=== PATIENT | male | born 1940 | race Caucasian/White ===

== ENCOUNTER 2017-07-02 07:20 | Day surgery (SDC) | payer MEDICARE, OTHER ==
[~2017-07-02] VITALS: Ht 177.8 cm; Wt 124.3 kg
[~2017-07-02 07:20] MED LIST: CARVEDILOL12.5 MG PO; CEPHALEXIN500 MG PO; DILAUDID4 MG PO; GABAPENTIN400 MG PO; HYDROCHLOROTHIA25 MG PO; LEVOTHYROXINE50 MCG PO; LISINOPRIL-HCT1 EAC2; NAPROXEN500 MG PO; OXYCODONE HCL5 MG PO; OXYCODONE-ACET1 EAC3 PO; PERCOCET 10-321 EACH PO; PHOSPHA 250 NE250 MG PO; RANITIDINE HCL150 MG PO
--- NOTE | 2017-07-02 09:38 | NUR ---
07/02/17 0938 Linda Dudley 0903 PT HAS SWALLOW BREATHING WITH ORAL AIRWAY IN PLACE, CHIN THRUST NEEDED TO MAINTAIN AIRWAY. 0912 O2 SAT DECREASING TO 90%, O2 INCREASED TO 12L. VERBAL STIMULI AND GENTAL TOUCH TO SHOULDER USE TO WAKE PT. 0914 PT REACTIVE AND O2 DECREASED 10L, O2 SAT INCREASED 98%. PT ABLE TO MAINTAIN AIRWAY WITH ORAL AIRWAY IN PLACE. 0918 ORAL AIRWAY REMOVED. 921 O2 DECREASED TO 6L VIA MASK.
--- NOTE | 2017-07-02 10:41 | NUR ---
PT UP TO BR W/RN STANDBY. PT AMBULATES W/HER WALKER TO THE BATHROOM AND REPORTS SUCCESSFUL VOID AND REQ DC HOME. PATIENT UPDATED ON HIS PLAN OF CARE AND HE VERBALIZES UNDERSTANDING OF THAT PLAN.
--- NOTE | 2017-07-02 11:13 | NUR ---
1105 HAS AMB VOIDED QS TAKEN PO WELL. CALLED BUS TO COME GET HIM IS DRESSED AND AMB DOWN HALLWAY. WALKED WITH PT AND BUS OUTSIDE GUN CLUB MANAGER ASSISTING PT.
--- NOTE | 2017-07-02 12:09 | NUR ---
PT LAYING COMFORTABLY IN BED-ALERT AND ORIENTED. SEEMED INFORMED-WAITING FOR I OFFERED TO PRAY FOR PT-HE SAID HE WAS PROTESTANT, BUT IT WOULD BE OK IF I PRAYED. UPON FINISHING-HE SAID THANK YOU, "I FEEL BETTER". WILL CONTINUE TO FOLLOW NEEDED
--- NOTE | 2017-07-05 15:18 | OR ---
[facility] [address] [place], [place] [address] Signed DATE OF OPERATION: 07/02/2017 SURGEON: Aakash Erazo MD PREOPERATIVE DIAGNOSIS: Severe carpal tunnel, left. POSTOPERATIVE DIAGNOSIS: Severe carpal tunnel, left. PROCEDURE: Carpal tunnel release, left. ANESTHESIA: Tolono block. SPECIMENS AND COMPLICATIONS: There were no specimens or complications. TOURNIQUET TIME: About 25 minutes. WHAT WAS DONE: The patient was taken to the operating room, placed on the operating table in a supine position. After anesthesia was induced, the left arm was positioned, prepped and draped in a routine sterile fashion. A volar incision was made beginning at the distal wrist flexion crease, extending distally for about 2 cm. Skin was divided sharply. Subcutaneous tissue was bluntly spread and a small soft retaining retractor was placed. A small Canaan was used to gently clean off the transverse volar carpal ligament, which was then released with the tip of a 15 blade. We then used a Ragnell retractor to lift up the distal flap and used a curved tenotomy scissor to decompress the rest of the median nerve following all the way out into the mid palm. We then reversed direction with the Ragnell lifted up the proximal flap and again used the curved tenotomy scissors to release the distal 3 cm of the antebrachial fascia. At this point, we had a complete decompression of the nerve, which was well visualized and seen to be severely compromised underneath the transverse volar carpal ligament. The wound was gently irrigated, closed in a standard fashion. Sterile dressing applied. The patient was awakened to the recovery room, where he arrived in stable condition. Counts were correct and antibiotic protocols were followed. Electronically Signed By: AAKASH ERAZO MD 07/05/17 1518 PATIENT NAME: ROSENDO LANDAVERDE OPERATIVE REPORT DATE OF : 44 PHYSICIAN: AAKASH ERAZO MD REPORT #: [id number] REPORT IS CONFIDENTIAL AND NOT TO BE RELEASED WITHOUT AUTHORIZATION [address] [place], [place] [address] Signed MD KELVIN Hamilton/JC /[id number] Electronically Signed By: AAKASH ERAZO MD 07/05/17 1518 PATIENT NAME: ROSENDO LANDAVERDE OPERATIVE REPORT DATE OF : 44 PHYSICIAN: AAKASH ERAZO MD REPORT #: [id number] REPORT IS CONFIDENTIAL AND NOT TO BE RELEASED WITHOUT AUTHORIZATION
== END 2017-07-02 11:05 | disposition home or self-care (01) ==
LOC: OPS 07:20 → DS 07:20 → OPS 08:00
PROVIDERS: Orthopaedic Surgery
PROC: 01N50ZZ Release Median Nerve, Open Approach (ICD-10-PCS; principal; 2017-07-02 08:00)
DX: G56.03 Carpal tunnel syndrome, bilateral upper limbs (principal); I10 Essential (primary) hypertension; F32.9 Major depressive disorder, single episode, unspecified; E03.9 Hypothyroidism, unspecified; K21.9 Gastro-esophageal reflux disease without esophagitis; Z79.899 Other long term (current) drug therapy
CPT/HCPCS: 01810; J0690; J1100; J1885; J2405; J2704; J3010; J7120

== ENCOUNTER 2017-11-19 13:33 | Emergency (ER) | payer MEDICARE, OTHER ==
[~2017-11-19] VITALS: Ht 177.8 cm; Wt 124.3 kg
== END 2017-11-19 13:51 | disposition home or self-care (01) ==
LOC: ED 13:33
DX: L08.9 Local infection of the skin and subcutaneous tissue, unspecified (principal)

== ENCOUNTER 2017-12-08 09:39 | Inpatient (IN) | payer MEDICARE, OTHER ==
[~2017-12-08] VITALS: Ht 177.8 cm; Wt 110.7 kg
[2017-12-08] MEDS ORDERED: LISINOPRIL10 MG PO (09:58)
[2017-12-08] MEDS ORDERED: POTASSIUM CHLO10 ME2 PO (09:59)
[2017-12-08] MEDS ORDERED: FUROSEMIDE20 MG PO (09:59)
[2017-12-13] MEDS ORDERED: CEPHALEXIN500 MG PO (13:00)
[2017-12-13] MEDS ORDERED: SULFAMETHOXAZO1 EAC1 PO (13:01)
== END 2017-12-13 14:27 | disposition home or self-care (01) | DRG 872 ==
LOC: ED 09:39 → CCU 15:01 → MS 12-09 11:25
PROVIDERS: ADMIT Internal Medicine
DX: A40.9 Streptococcal sepsis, unspecified (principal); L03.115 Cellulitis of right lower limb; A41.01 Sepsis due to Methicillin susceptible Staphylococcus aureus; I10 Essential (primary) hypertension; K21.9 Gastro-esophageal reflux disease without esophagitis; G62.9 Polyneuropathy, unspecified; M21.371 Foot drop, right foot; M54.5 Low back pain; S74.01XS Injury of sciatic nerve at hip and thigh level, right leg, sequela
CPT/HCPCS: 36415; 36569; 51701; 71045; 80048; 80053; 80202; 81001; 83605; 83735; 83880; 85025; 93971; 94668; 96365; 96366; 96367; 96375; 99285; J0696; J1650; J3370; J7030; J7040; J7050; J7120

== ENCOUNTER 2018-08-11 12:47 | Emergency (ER) | payer MEDICARE, OTHER ==
[~2018-08-11] VITALS: Ht 177.8 cm; Wt 110.7 kg
--- OUTSIDE RECORDS SUMMARY | ~2018-08-11 | XMS | Encounter Summary ---
Demographics + + + | Address | [address] | | | [place] [address] | + + + | Home Phone | | + + + | Preferred Language | Unknown | + + + | Marital Status | | + + + | Taoism Affiliation | Unknown | + + + | Race | Unknown | + + + | Ethnic Group | Unknown | + + + Author + + + | Author | [facility] | | | and [place] | + + + | Organization | [facility] | | | and [place] | + + + | Address | Unknown | + + + | Phone | Unavailable | + + + Support + + +---------+ + | Name | Relationship | Address | Phone | + + +---------+ + | None,To List | ECON | Unknown | | + + +---------+ + Care Team Providers + +------+ + | Care Rn Geriatric Name | Role | Phone | + +------+ + | Serafin Crawford NP | PCP | | + +------+ + Encounter Details +--------+ + + + + | Date | Type | Department | Care Team | Description | +--------+ + + + + | 07/05/ | Documentati | [facility] [place] | Ian Diaz | | | 2019 | on | PHYSIATRY [address] | TMD [address] | | | | | [place], | [address] [place] | | | | | [place] [address] | [address] | | | | | [phone] | | | +--------+ + + + + Social History + + + +--------+ + | Tobacco Use | Types | Packs/Day | Years | Date | | | | | Used | | + + + +--------+ + | Former Smoker | Cigarettes | 2 | 20 | 06/01/1970 - | | | | | | 06/01/1990 | + + + +--------+ + + +---+---+---+ | Smokeless Tobacco: | | | | | Never Used | | | | + +---+---+---+ + + +---------+ + | Alcohol Use | Drinks/We | oz/Week | Comments | | | ek | | | + + +---------+ + | Yes | | | rarely | + + +---------+ + + + + | Sex Assigned at | Date Recorded | | | | + + + | Not on file | | + + + as of this encounter Functional Status + + + + | Functional Status | Response | Date of Assessment | + + + + | Are you deaf or do you have serious | No | 03/26/2018 | | difficulty hearing? | | | + + + + | Are you blind or do you have serious | No | 03/26/2018 | | difficulty seeing, even when wearing | | | | glasses? | | | + + + + | Do you have serious difficulty walking or | No | 03/26/2018 | | climbing stairs? (5 years old or older) | | | + + + + | Do you have difficulty dressing or bathing? | No | 03/26/2018 | | (5 years old or older) | | | + + + + | Because of a physical, mental, or emotional | No | 03/26/2018 | | condition, do you have difficulty doing | | | | errands alone such as visiting a doctor's | | | | office or shopping? [15 years old or | | | | older)] | | | + + + + + + + + | Cognitive Status | Response | Date of Assessment | + + + + | Because of a physical, mental, or emotional | No | 03/26/2018 | | condition, do you have serious difficulty | | | | concentrating, remembering, or making | | | | decisions? (5 years old or older) | | | + + + + as of this encounter Progress Notes Chrissy Segovia - 07/05/2018 1426 PSTPain injection log received, in this encounter Plan of Treatment Not on fileas of this encounter Visit Diagnoses Not on filein this encounter"
--- OUTSIDE RECORDS SUMMARY | ~2018-08-11 | XMS | Encounter Summary ---
Demographics + + + | Address | [address] | | | [place] [address] | + + + | Home Phone | | + + + | Preferred Language | Unknown | + + + | Marital Status | | + + + | Holiness Affiliation | Unknown | + + + | Race | Unknown | + + + | Ethnic Group | Unknown | + + + Author + + + | Author | [facility] | | | and [place] | + + + | Organization | [facility] | | | and [...] Team Providers + +------+ + | Care Chain Forming Machine Operator Name | Role | Phone | + +------+ + | Serafin Crawford NP | PCP | | + +------+ + Reason for Visit Service/Procedure (Routine) +--------+--------+ + + + + | Status | Reason | Specialty | Diagnoses / | Referred By | Referred To | | | | | Procedures | Contact | Contact | +--------+--------+ + + + + | Closed | | Radiology | Diagnoses | | [facility] | | | | | Lumbar | Emily, | [address] | | | | | spondylosis | Ian Boss MD | [place], | | | | | Procedures | [address] | [place] | | | | | [place] | [place] | [address] | | | | | DX/THER AGNT | [place] | Phone: | | | | | [place] | [address] | [phone] | | | | | FACET JOINT, | Phone: | Fax: | | | | | LUMBAR/SAC, | [phone] | [phone] | | | | | 1ST LEVEL | Fax: | | | | | | [place] IN[place] | [phone] | | | | | | DX/THER AGNT | | | | | | | [place] | | | | | | | FACET JOINT, | | | | | | | LUMBAR/SAC, | | | | | | | 2ND LEVEL | | | | | | | Bilateral | | | | | | | L3, L4, MBB, | | | | | | | Bilateral | | | | | | | L5 DR Block | | | | | | | #2 | | | +--------+--------+ + + + + Encounter Details +--------+ + + + + | Date | Type | Department | Care Team | Description | +--------+ + + + + | 03/05/ | Hospital | [facility] | Ian Diaz | Spondylosis without | | 2019 | Encounter | MED CTR XRAY [address] | T, [address] | myelopathy or | | | | [address] [place] | [address] [place], [place] | radiculopathy, | | | | [place] [address] | [address] | lumbar region; | | | | [phone] | | Lumbar spondylosis | | | | | [place] | | +--------+ + + + + [...] + + + as of this encounter Last Filed Vital Signs + +---------+ + | Vital Sign | Reading | Time Taken | + +---------+ + | Blood Pressure | 221/84 | 08/03/2018 1506 PST | + +---------+ + | Pulse | 74 | 08/03/2018 1506 PST | + +---------+ + | Temperature | - | - | + +---------+ + | Respiratory Rate | - | - | + +---------+ + | Oxygen Saturation | - | - | + +---------+ + | Inhaled Oxygen | - | - | | Concentration | | | + +---------+ + | Weight | - | - | + +---------+ + | Height | - | - | + +---------+ + | Body Mass Index | - | - | + +---------+ + in this encounter Functional Status + + + [...] + + + as of this encounter Medications at Time of Discharge + + +--------+---------+ + + | Medication | Sig. | Disp. | Refills | Start | End Date | | | | | | Date | | + + +--------+---------+ + + | FLUAD 0.5 ML | inject 0.5 | | 0 | 02/06/20 | | | vaccine injection | milliliter | | | 18 | | | | intramuscularly | | | | | + + +--------+---------+ + + | furosemide (LASIX) | Take 40 mg by mouth | | | | | | 40 mg tablet | as needed. | | | | | + + +--------+---------+ + + | gabapentin | Take 400 mg by mouth | | | | | | (NEURONTIN) 400 mg | 2 times daily. 800 | | | | | | capsule | mg at Night, 400 mg | | | | | | | in the morning | | | | | + + +--------+---------+ + + | lisinopril | Take 1 tablet by | 30 | 0 | 03/27/20 | | | (PRINIVIL, ZESTRIL) | mouth Daily. | tablet | | 18 | | | 20 mg tablet | | | | | | + + +--------+---------+ + + | naproxen | Take 250 mg by mouth | | | | | | (NAPROSYN) 250 mg | 2 times daily (with | | | | | | tablet | breakfast & | | | | | | | dinner). | | | | | + + +--------+---------+ + + | | Take 1 tablet by | 60 | 0 | 11/16/20 | | | oxyCODONE-acetaminop | mouth every 8 hours | tablet | | 18 | | | hen (PERCOCET) 5-325 | as needed for Pain. | | | | | | mg per tablet | | | | | | + + +--------+---------+ + + | Ranitidine HCl | Take 150 mg by mouth | | | | | | (ZANTAC PO) | 2 times daily. | | | | | + + +--------+---------+ + + as of this encounter Plan of Treatment Not on fileas of this encounter Procedures + +--------+ + + + | Procedure Name | Priori | Date/Time | Associated Diagnosis | Comments | | | ty | | | | + +--------+ + + + | FL FACET INJECTION | Routin | 08/03/2018 | Spondylosis | Results for this | | LUMBAR SACRAL | e | 1446 PST | without myelopathy | procedure are in the | | | | | or radiculopathy, | results section. | | | | | lumbar region | | + +--------+ + + + in this encounter Results FL Facet Injection Lumbar Sacral (08/03/2018 1446) + + -+ | Narrative | Performed At | + + -+ | | [facility] | | 08/03/2018Bilateral Lumbar Medial Branch Block Diagnosis: Lumbar | | | spondylosis ICD-10 M47.817 Britni Hahn presents to the fluoroscopy | | | suite for fluoroscopically-guided bilateral L3, L4 medial branch | | | blocks and bilateral L5 dorsal ramus blocks as part of conservative | | | management for chronic pain with lumbar spondylosis.Based on the | | | patient's history, physical examination and review of the available | | | imaging the patient has been diagnosed with pain coming primarily from | | | the lumbar facet joints. The patient's pain has been moderate to | | | severe, rated as an 8 usually on a 0-10 scale. The pain is | | | impacting activities of daily living including any activities that | | | include prolonged standing, prolonged walking, bending, twisting and | | | if he sits for too long. The patient has been dealing with this | | | pain for more than 3 months and has failed conservative treatment with | | | NSAIDs, PT and a home exercise program therefore diagnostic medial | | | branch blocks were ordered targeting the bilateral L4-L5 and L5-S1 | | | facet joints. After informed consent was obtained, the patient | | | lay in a prone position on the fluoroscopy table. The areas were | | | identified under fluoroscopic guidance. The areas were prepped and | | | draped in a sterile fashion. A 25-gauge 1.5-inch needle was inserted | | | into each region and approximately 2 mL of buffered 1% lidocaine was | | | infused. Then a 22-gauge spinal needle was advanced to the correct | | | position at each site under fluoroscopic guidance. Confirmation into | | | the proper location was obtained with infusion of a small amount of | | | Omnipaque contrast at each site. Then 0.5 mL of 0.5% ropivacaine was | | | infused at each location. Pre- and post-procedure blood pressures were | | | stable. The patient was given verbal as well as written followup | | | instructions. The patient was reexamined after the procedure. He | | | reported good improvement of his symptoms after the procedure. His | | | symptoms were improved even with bending and twisting maneuvers. The | | | patient was instructed to keep a detailed pain diary of the response | | | to treatment and will return the pain diary to our office within the | | | next few days for further evaluation and additional treatment | | | planning. Prior to the start of the procedure, the following were | | | performed and/or verified, including correct patient identity, correct | | | site/side marked and visible, agreement on the procedure to be done, | | | correct patient positioning and an accurate procedure consent form. | | | Any safety precautions based on clinical history and/or medication use | | | have been addressed. I personally performed the procedure above. | | | Estimated blood loss: MinimalComplications: NoneFindings: As | | | expectedAnesthesia: Local 1% Lidocaine | | |visible, agreement on the procedure to be done, correct patient | | |positioning and an accurate procedure consent form. Any safety precautions | | |based on clinical history and/or medication use have been addressed. I | | |personally performed the procedure above. | | | | | |Estimated blood loss: Minimal | | |Complications: None | | |Findings: As expected | | |Anesthesia: Local 1% Lidocaine | | + + -+ + +---------+ + + | Performing | Address | City/State/Zipcode | Phone Number | | Organization | | | | + +---------+ + + | [facility] | | | | + +---------+ + + in this encounter Visit Diagnoses + + | Diagnosis | + + | Spondylosis without myelopathy or radiculopathy, lumbar region | + + | Lumbar spondylosis | + + | Lumbosacral spondylosis without myelopathy | + + Administered Medications + +--------+ +-------+------+------+ | Medication Order | MAR | Action | Dose | Rate | Site | | | Action | Date | | | | + +--------+ +-------+------+------+ | iohexol (OMNIPAQUE 300) 300 | Given | 08/03/2018 | 4 mLs | | | | mg/mL injection 4 mL 4 mL, | | 14:53 | | | | | Other, ONCE, [facility] 08/03/18 at 1500, | | PST | | | | | For 1 dose | | | | | | + +--------+ +-------+------+------+ +---+---+ | | | +---+---+ + +-------+ +--------+---+ + | lidocaine buffered 0.9% | Given | 08/03/2018 | 10 mLs | | Other | | injection 10 mL 10 mL, | | 14:51 | | | (Comment | | Intradermal, ONCE, [facility] 08/03/18 at | | PST | | | ) | | 1500, For 1 dose | | | | | | + +-------+ +--------+---+ + +---+---+ | | | +---+---+ + +-------+ +-------+---+---+ | ropivacaine (NAROPIN) 5 mg/mL | Given | 08/03/2018 | 3 mLs | | | | (0.5%) injection 3 mL 3 mL, | | 14:57 | | | | | PERINEURAL, ONCE, 08/03/18 at | | PST | | | | | 1500, For 1 dose | | | | | | + +-------+ +-------+---+---+ +---+---+ | | | +---+---+ in this encounter"
--- OUTSIDE RECORDS SUMMARY | ~2018-08-11 | XMS | Encounter Summary ---
Demographics + + + | Address | [address] | | | [place] [address] | + + + | Home Phone | | + + + | Preferred Language | Unknown | + + + | Marital Status | | + + + | Adventism Affiliation | Unknown | + + + | Race | Unknown | + + + | Ethnic Group | Unknown | + + + Author + + + | Author | [facility] | | | and [place] | + + + | Organization | [facility] | | | [...] Team Providers + +------+ + | Care [place] Dental Lab Technician Name | Role | Phone | + +------+ + | Serafin Crawford NP | PCP | | + +------+ + Encounter Details +--------+ + + + + | Date | Type | Department | Care Team | Description | +--------+ + + + + | 07/26/ | Orders Only | [facility] [place] | Ian Diaz | Spondylosis without | | 2019 | | PHYSIATRY [address] | [address] | myelopathy or | | | | [employer], | [place], [place] | radiculopathy, | | | | [place] [address] | [address] | lumbar region | | | | [phone] | | (Primary Dx) | +--------+ + + + + Social [...] + + + as of this encounter Plan of Treatment Not on fileas of this encounter Results FL Facet Injection Lumbar [...] Spondylosis without myelopathy or radiculopathy, lumbar region - Primary | + +"
--- OUTSIDE RECORDS SUMMARY | ~2018-08-11 | XMS | Encounter Summary ---
Demographics + + + | Address | [address] | | | [place] [address] | + + + | Home Phone | | + + + | Preferred Language | Unknown | + + + | Marital Status | Single | + + + | Congregation Affiliation | Unknown | + + + | Race | Unknown | + + + | Ethnic Group | Unknown | + + + Author + + + | Author | [facility] | + + + | Organization | [facility] | + + + | Address | Unknown | + + + | Phone | Unavailable | + + + Support + + +---------+ + | Name | Relationship | Address | Phone | + + +---------+ + | Contact,No | ECON | Unknown | | + + +---------+ + Care Team Providers + +------+ + | Care Vision Rehabilitation Therapist Name | Role | Phone | + +------+ + | Nicolas Castañeda MD | PCP | Unavailable | + +------+ + Encounter Details +--------+ + + + + | Date | Type | Department | Care Team | Description | +--------+ + + + + | 06/08/ | Orders Only | [facility] | Bharath Cerda, | Chronic midline low | | 2019 | [facility] | DO [address] | back pain without | | | | [address] | [place] | sciatica; | | | | [place] | [address] | Degeneration of | | | | [address] | | intervertebral disc | | | | [phone] | | of lumbar region | +--------+ + + + + Social History + +-------+ +--------+------+ | Tobacco Use | Types | Packs/Day | Years | Date | | | | | Used | | + +-------+ +--------+------+ | Former Smoker | | | | | + +-------+ +--------+------+ + +---+---+---+ | Smokeless Tobacco: | | | | | Never Used | | | | + +---+---+---+ + + | Comments: quit 1985 | + + + + +---------+ + | Alcohol Use | Drinks/We | oz/Week | Comments | | | ek | | | + + +---------+ + | Yes | | | | + + +---------+ + + + + | Sex Assigned at | Date Recorded | | | | + + + | Not on file | | + + + as of this encounter Plan of Treatment Not on fileas of this encounter Visit Diagnoses + + | Diagnosis | + + | Chronic midline low back pain without sciatica | + + | Degeneration of intervertebral disc of lumbar region | + +"
--- OUTSIDE RECORDS SUMMARY | ~2018-08-11 | XMS | Encounter Summary ---
Demographics + + + | Address | [address] | | | [place] [address] | + + + | Home Phone | | + + + | Preferred Language | Unknown | + + + | Marital Status | | + + + | Jew Affiliation | Unknown | + + + | Race | Unknown | + + + | Ethnic Group | Unknown | + + + Author + + + | Author | [facility] | | | and [place] | + + + | Organization | [facility] | | | [...] Team Providers + +------+ + | Care Ice Cream Maker Name | Role | Phone | + [...] | Lumbar | Emily, | [address] | | | | | spondylosis | Ian Boss MD | [place], | | | | | Procedures | [address] | [place] | | | | | [place] IN[place] | [place] | [address] | | | | | DX/THER AGNT | [place] | Phone: | | | | | [place] | [address] | [phone] | | | | | FACET [place], | Phone: | Fax: | | | | | LUMBAR/SAC, | [phone] | [phone] | | | | | 1ST LEVEL | Fax: | | | | | | [place] IN[place] | [phone] | | | | | | DX/THER [...] + + | 03/05/ | Hospital | [facility] | Ian Diaz | Spondylosis without | | 2019 | Encounter | MED CTR XRAY [address] | T, [address] | myelopathy or | | | | [address] [place] | [place] | radiculopathy, | | | | [place] [address] | [address] | lumbar region; | | | | [phone] | | Lumbar spondylosis | | | | | Research Instrumentation Technician, Ws | | +--------+ + + + [...] | | | | | Other, ONCE, [facility] 08/03/18 at 1500, | | PST | [...] | | (Comment | | Intradermal, ONCE, [facility] 08/03/18 at | | PST | | [...]
--- OUTSIDE RECORDS SUMMARY | ~2018-08-11 | XMS | Clinical Summary ---
Demographics + + + | Address | [address] | | | [place] [address] | + + + | Home Phone | | + + + | Preferred Language | Unknown | + + + | Marital Status | Single | + + + | Denominational Affiliation | Unknown | + + + | Race | Unknown | + + + | Ethnic Group | Unknown | + + + Author + + + | Author | [facility] | + + + | Organization | [facility] | + + + | Address | Unknown | + + + | Phone | Unavailable | + + + Support + + +---------+ + | Name | Relationship | Address | Phone | + + +---------+ + | Contact,No | ECON | Unknown | | + + +---------+ + Care Team Providers + +------+ + | Care Prevocational/Rehabilitation Counselor Name | Role | Phone | + +------+ + | Nicolas Castañeda MD | PP | Unavailable | + +------+ + Allergies No Known Allergies Current Medications + + +---------+---------+------+------+-------+ | Prescription | Sig. | Disp. | Refills | Star | End | Statu | | | | | | t | Date | s | | | | | | Date | | | + + +---------+---------+------+------+-------+ | furosemide (LASIX) | Take 40 mg by mouth. | | | | | Activ | | 40 MG tablet | | | | | | e | + + +---------+---------+------+------+-------+ | naproxen | Take 250 mg by | | | | | Activ | | (NAPROSYN) 250 MG | mouth. | | | | | e | | tablet | | | | | | | + + +---------+---------+------+------+-------+ | ranitidine | Take 150 mg by | | | | | Activ | | (ZANTAC) 150 MG | mouth. | | | | | e | | capsule | | | | | | | + + +---------+---------+------+------+-------+ | gabapentin | Take 1 capsule by | 90 | 3 | 12/1 | | Activ | | (NEURONTIN) 400 MG | mouth 3 (three) | capsule | | 1/20 | | e | | capsuleIndications: | times daily for 30 | | | 18 | | | | Chronic midline low | days. | | | | | | | back pain without | | | | | | | | sciatica, | | | | | | | | Degeneration of | | | | | | | | intervertebral disc | | | | | | | | of lumbar region | | | | | | | + + +---------+---------+------+------+-------+ | | Take 1 tablet by | 60 | 0 | 02/0 | | Activ | | oxyCODONE-acetaminop | mouth every 12 | tablet | | 8/20 | | e | | hen (PERCOCET) 5-325 | (twelve) hours as | | | 19 | | | | MG per | needed for Pain for | | | | | | | tabletIndications: | up to 30 days. | | | | | | | Chronic midline low | | | | | | | | back pain without | | | | | | | | sciatica, | | | | | | | | Degeneration of | | | | | | | | intervertebral disc | | | | | | | | of lumbar region | | | | | | | + + +---------+---------+------+------+-------+ | traMADol (ULTRAM) | Take 1 tablet by | 120 | 3 | 01/0 | | Activ | | 50 MG | mouth every 6 (six) | tablet | | 8/20 | | e | | tabletIndications: | hours as needed for | | | 19 | | | | Chronic midline low | up to 30 days. | | | | | | | back pain without | | | | | | | | sciatica, | | | | | | | | Degeneration of | | | | | | | | intervertebral disc | | | | | | | | of lumbar region | | | | | | | + + +---------+---------+------+------+-------+ Active Problems + + + | Problem | Noted Date | + + + | Chronic midline low back pain without sciatica | 01/11/2018 | + + + | Right leg weakness | 01/11/2018 | + + + | Degeneration of intervertebral disc of lumbar region | 01/11/2018 | + + + Encounters +--------+ + + + + | Date | Type | Specialty | Care Team | Description | +--------+ + + + + | 06/08/ | Orders Only | | Bharath Cerda, | Chronic midline low | | 2019 | | | DO | back pain without | | | | | | sciatica; | | | | | | Degeneration of | | | | | | intervertebral disc | | | | | | of lumbar region | +--------+ + + + + | 05/21/ | Documentati | | Liv Diehl MA | Other (Diagnostics | | 2018 | on Only | | | XR MR) | +--------+ + + + + from Last 3 Months Family History + + +------+ + | Medical History | Relation | Name | Comments | + + +------+ + | Stroke | Father | | | + + +------+ + | Heart attack | Mother | | | + + +------+ + + +------+ + + | Relation | Name | Status | Comments | + +------+ + + | Father | | | | + +------+ + + | Mother | | | | + +------+ + + Social History + +-------+ +--------+------+ [...] on file | | + + + Last Filed Vital Signs + + + + | Vital Sign | Reading | Time Taken | + + + + | Blood Pressure | 150/67 | 05/11/2018 10:13 AM PST | + + + + | Pulse | 78 | 05/11/2018 10:13 AM PST | + + + + | Temperature | - | - | + + + + | Respiratory Rate | 18 | 05/11/2018 10:13 AM PST | + + + + | Oxygen Saturation | 96% | 05/11/2018 10:13 AM PST | + + + + | Inhaled Oxygen | - | - | | Concentration | | | + + + + | Weight | 112.9 kg (249 lb) | 05/11/2018 10:13 AM PST | + + + + | Height | 177.8 cm (5' 10") | 05/11/2018 10:13 AM PST | + + + + | Body Mass Index | 35.73 | 05/11/2018 10:13 AM PST | + + + + Plan of Treatment + + + + + | Health Maintenance | Due Date | Last Done | Comments | + + + + + | Vaccine: | | | | | Dtap/Tdap/Td (1 - | 2 | | | | Tdap) | | | | + + + + + | Colon Cancer | | | | | Screening | 3 | | | | (Colonoscopy) | | | | + + + + + | Vaccine: Zoster (1 | | | | | of 2) | 3 | | | + + + + + | Vaccine: | | | | | Pneumococcal 65+ | 8 | | | | Low/Medium Risk (1 | | | | | of 2 - PCV13) | | | | + + + + + | Vaccine: Influenza | | | | | (#1) | 8 | | | + + + + + Results Not on filefrom Last 3 Months Insurance + +--------+ +------+-------+ + | Payer | Benefi | Subscriber | Type | Phone | Address | | | t Plan | ID | | | | | | / | | | | | | | Group | | | | | + +--------+ +------+-------+ + | MEDICARE | MEDICA | [id number] | | | [address] | | | RE | | | | [place] [address] | | | IP-OP | | | | | + +--------+ +------+-------+ + | MEDICAID | OBED | [id number] | | | [address] | | | N | | | | [place] | | | [place] | | | | [address] | | | [employer] | | | | | + +--------+ +------+-------+ + + +--------+ +--------+ + + | Guarantor Name | Accoun | Relation to | Date | Phone | Billing Address | | | t Type | Patient | of | | | | | | | | | | + +--------+ +--------+ + + | BRITNI HAHN | Person | Self | [birth year] | Home: | [address] | | | al/Fam | | 1941 | [phone] | [address] [place], | | | [place] | | | [phone] | [place] [address] | + +--------+ +--------+ + +
--- OUTSIDE RECORDS SUMMARY | ~2018-08-11 | XMS | Clinical Summary ---
Demographics + + + | Address | [address] | | | [place] [address] | + + + | Home Phone | | + + + | Preferred Language | Unknown | + + + | Marital Status | | + + + | Confucianist Affiliation | Unknown | + + + | Race | Unknown | + + + | Ethnic Group | Unknown | + + + Author + + + | Author | [facility] | | | and [place] | + + + | Organization | [facility] | | | and [...] Team Providers + +------+ + | Care Executive Candidate Developer Name | Role | Phone | + +------+ + | Serafin Crawford DIP TUBE ASSEMBLER MACHINE | PP | | + +------+ + Allergies No Known Allergies Current Medications + + +--------+---------+------+------+-------+ | Prescription | Sig. | Disp. | Refills | Star | End | Statu | | | | | | t | Date | s | | | | | | Date | | | + + +--------+---------+------+------+-------+ | Ranitidine HCl | Take 150 mg by mouth | | | | | Activ | | (ZANTAC PO) | 2 times daily. | | | | | e | + + +--------+---------+------+------+-------+ | naproxen | Take 250 mg by mouth | | | | | Activ | | (NAPROSYN) 250 mg | 2 times daily (with | | | | | e | | tablet | breakfast & | | | | | | | | dinner). | | | | | | + + +--------+---------+------+------+-------+ | gabapentin | Take 400 mg by mouth | | | | | Activ | | (NEURONTIN) 400 mg | 2 times daily. 800 | | | | | e | | capsule | mg at Night, 400 mg | | | | | | | | in the morning | | | | | | + + +--------+---------+------+------+-------+ | furosemide (LASIX) | Take 40 mg by mouth | | | | | Activ | | 40 mg tablet | as needed. | | | | | e | + + +--------+---------+------+------+-------+ | lisinopril | Take 1 tablet by | 30 | 0 | 10/2 | | Activ | | (PRINIVIL, ZESTRIL) | mouth Daily. | tablet | | 7/20 | | e | | 20 mg tablet | | | | 18 | | | + + +--------+---------+------+------+-------+ | FLUAD 0.5 ML | inject 0.5 | | 0 | 09/0 | | Activ | | vaccine injection | milliliter | | | 7/20 | | e | | | intramuscularly | | | 18 | | | + + +--------+---------+------+------+-------+ | | Take 1 tablet by | 60 | 0 | 11/1 | | Activ | | oxyCODONE-acetaminop | mouth every 8 hours | tablet | | 6/20 | | e | | hen (PERCOCET) 5-325 | as needed for Pain. | | | 18 | | | | mg per tablet | | | | | | | + + +--------+---------+------+------+-------+ Active Problems + + + | Problem | Noted Date | + + + | Lumbar spondylosis | 04/16/2018 | + + + | Facet arthritis of lumbar region (HCC) | 04/16/2018 | + + + | Degeneration of intervertebral disc of lumbar region | 01/11/2018 | + + + | HIP PAIN, BILATERAL | | + + + | GERD (gastroesophageal reflux disease) | | + + + | Depression | | + + + | Osteoarthritis | | + + + | HTN (hypertension) | | + + + | Scoliosis | | + + + | Chronic midline low back pain without sciatica | | + + + | Right foot drop | | + + + | Cholecystitis with cholelithiasis | | + + + | Pancreatitis | | + + + Resolved Problems + + + + | Problem | Noted | Resolved | | | Date | Date | + + + + | Chest pain | 03/25/20 | | | | 18 | 8 | + + + + Encounters +--------+ + + + + | Date | Type | Specialty | Care Team | Description | +--------+ + + + + | 08/04/ | Documentati | | Ian Diaz | | | 2019 | on | | T, | | +--------+ + + + + | 08/03/ | Hospital | | Ian Diaz | Spondylosis without | | 2018 | Encounter | | MD Karyn Production Manufacturing Worker, | myelopathy or | | | | | [facility] | radiculopathy, | | | | | | lumbar region; | | | | | | Lumbar spondylosis | +--------+ + + + + | 07/26/ | Orders Only | | Ian Diaz | Spondylosis without | | 2018 | | | MD Karyn | myelopathy or | | | | | | radiculopathy, | | | | | | lumbar region | | | | | | (Primary Dx) | +--------+ + + + + | 07/05/ | Documentati | Ian Edwards | | | 2018 | on | | T, MD | | +--------+ + + + + from Last 3 Months Family History + + +------+ + | Medical History | Relation | Name | Comments | + + +------+ + | Stroke | Father | | | + + +------+ + | Arthritis | Mother | | | + + +------+ + | Cancer | Mother | | | + + +------+ + | Diabetes | Mother | | | + + +------+ + + +------+ + + | Relation | Name | Status | Comments | + +------+ + + | Father | | | | + +------+ + + | Mother | | | | + +------+ + + Social History + + + [...] + + + | Blood Pressure | 221/84 | 08/03/2018 1506 PST | + + + + | Pulse | 74 | 08/03/2018 1506 PST | + + + + | Temperature | 36 C (96.8 F) | 03/26/2018 0800 PDT | + + + + | Respiratory Rate | 18 | 03/26/2018799 PDT | + + + + | Oxygen Saturation | 97% | 03/26/2018799 PDT | + + + + | Inhaled Oxygen | - | - | | Concentration | | | + + + + | Weight | 113.4 kg (250 lb) | 04/16/20181117 PST | + + + + | Height | 177.8 cm (5' 10") | 04/16/20181117 PST | + + + + | Body Mass Index | 35.87 | 04/16/20181117 PST | + + + + Plan of Treatment + + + + + | Health Maintenance | Due Date | Last Done | Comments | + + + + + | Vaccine: | | | | | Dtap/Tdap/Td (1 - | 2 | | | | Tdap) | | | | + + + + + | Colorectal Cancer | | | | | Screening | 3 | | | | (Colonoscopy) | | | | + + + + + | Vaccine: Zoster (1 | | | | | of 2) | 3 | | | + + + + + | AAA Screening | | | | | | 8 | | | + + + + + | Vaccine: | | | | | Pneumococcal 65+ | 8 | | | | Low/Medium Risk (1 | | | | | of 2 - PCV13) | | | | + + + + + | Adult Annual | | | | | Wellness Visit | 5 | | | + + + + + | Vaccine: Influenza | | | | | (#1) | 8 | | | + + + + + Procedures + +--------+ + + + | [...] | | + +--------+ + + + from Last 3 Months Results [place] Facet Injection Lumbar Sacral (08/03/2018 [...] | | | + +---------+ + + from Last 3 Months Insurance + +--------+ +--------+ +---------+ | Payer | Benefi | Subscriber | Type | Phone | Address | | | t Plan | ID | | | | | | / | | | | | | | Group | | | | | + +--------+ +--------+ +---------+ | MEDICARE | MEDICA | [id number] | Medica | +1- | | | | RE | | re | [phone] | | | | PART A | | | | | | | AND B | | | | | + +--------+ +--------+ +---------+ | [employer]AN | MODA | [id number] | Medica | +156- | | | MEDICAID HMO | HEALTH | | id | [id number] | | | | MDCD | | | | | | | [place]MO [place] | | | | | + +--------+ +--------+ +---------+ + +--------+ +--------+ + + | Guarantor Name | Accoun | Relation to | Date | Phone | Billing Address | | | t Type | Patient | of | | | | | | | | | | + +--------+ +--------+ + + | BRITNI HAHN | Person | Self [birth year] | Home: | [address] | | | [place] | | 1941 | [phone] | [address] [place], | | | [place] | | | [address] | [place] [address] | + +--------+ +--------+ + +
--- OUTSIDE RECORDS SUMMARY | ~2018-08-11 | XMS | Clinical Summary ---
Demographics + + + | Address | [address] | | | [place] [address] | + + + | Home Phone | | + + + | Preferred Language | Unknown | + + + | Marital Status | | + + + | Denominational Affiliation [...] Team Providers + +------+ + | Care Surgery Specialist Name | Role | Phone | + +------+ + | Serafin Crawford INTERMEDIATE SCHOOL TEACHER | PP | | + +------+ + [...] 2018 | Encounter | | MD Karyn Steel Melter, | myelopathy or | | | | [...] +--------+ +---------+ | MEDICARE | MEDICA | [id number] | Medica | +1- | | | | RE | | re | [phone] | | | | PART A | | | | | | | AND B | | | | | + +--------+ +--------+ +---------+ | MODA [employer] PLAN | MODA | [id number] | Medica | +118- | | | MEDICAID HMO | HEALTH [...] | | | [place] | | | [phone] | [place] [address] | + +--------+ +--------+ + +
--- OUTSIDE RECORDS SUMMARY | ~2018-08-11 | XMS | Encounter Summary ---
Demographics + + + | Address | [address] | | | [place] [address] | + + + | Home Phone | | + + + | Preferred Language | Unknown | + + + | Marital Status | Single | + + + | Mosque Affiliation | Unknown | + + + | Race | Unknown | + + + | Ethnic Group | Unknown | + + + Author + + + | Author | [facility] | + + + | Organization | [facility] | + + + | Address | Unknown | + + + | Phone | Unavailable | + + + Support + + +---------+ + | Name | Relationship | Address | Phone | + + +---------+ + | Contact,No | ECON | Unknown | | + + +---------+ + Care Team Providers + +------+ + | Care Bone Crusher Name | Role | Phone | + +------+ + | Nicolas Castañeda MD | PCP | Unavailable | + +------+ + Reason for Visit +--------+ + | Reason | Comments | +--------+ + | Other | Diagnostics XR MR | +--------+ + Encounter Details +--------+ + + + + | Date | Type | Department | Care Team | Description | +--------+ + + + + | 05/21/ | Documentati | [facility] | Liv Diehl MA | Other (Diagnostics | | 2018 | on Only | [facility] | | XR MR) | | | | [address] | | | | | | [place] | | | | | | [address] | | | | | | [phone] | | | +--------+ + + + [...]
--- OUTSIDE RECORDS SUMMARY | ~2018-08-11 | XMS | Encounter Summary ---
Demographics + + + | Address | [address] | | | [place] [address] | + + + | Home Phone | | + + + | Preferred Language | Unknown | + + + | Marital Status | | + + + | Congregational Affiliation | Unknown | + + + | Race | Unknown | + + + | Ethnic Group | Unknown | + + + Author + + + | Author | [facility] | | | and [place] | + + + | Organization | [facility] | | | [...] Team Providers + +------+ + | Care Military Pay Technician Name | Role | Phone | [...] | myelopathy or | | | | [place], | [place], [place] | radiculopathy, | | | | [place] [address] | [address] | lumbar region | | | | [phone] | | (Primary Dx) | +--------+ + [...]
--- OUTSIDE RECORDS SUMMARY | ~2018-08-11 | XMS | Encounter Summary ---
Demographics + + + | Address | [address] | | | [place] [address] | + + + | Home Phone | | + + + | Preferred Language | Unknown | + + + | Marital Status | | + + + | Pentecostalism Affiliation | Unknown | + + + | Race | Unknown | + + + | Ethnic Group | Unknown | + + + Author + + + | Author | [facility] | | | and [place] | + + + | Organization | [facility] | | | [...] Team Providers + +------+ + | Care Hand Tile Maker Name | Role | Phone | + +------+ + | Serafin Crawford NP | PCP | | + +------+ + Encounter Details +--------+ + + + + | Date | Type | Department | Care Team | Description | +--------+ + + + + | 08/04/ | Documentati | [facility] | Ian Diaz | | | 2019 | on | PHYSIATRY [address] | TMD [address] | | | | | [place], | [place] | | | | | [place] [address] | [address] | | | | | [phone] | | | +--------+ + + + [...] this encounter Progress Notes Chrissy Segovia - 08/04/2018 1022 PSTPain injection log received in this encounter Plan of Treatment Not on fileas of this encounter Visit Diagnoses Not on filein this encounter"
--- OUTSIDE RECORDS SUMMARY | ~2018-08-11 | XMS | Clinical Summary ---
Demographics + + + | Address | [address] | | | [place] [address] | + + + | Home Phone | | + + + | Preferred Language | Unknown | + + + | Marital Status | Single | + + + | Episcopalian Affiliation | Unknown | + + + | Race | Unknown | + + + | Ethnic Group | Unknown | + + + Author + + + | Author | [facility] | + + + | Organization | [facility] | + + + | Address | Unknown | + + + | Phone | Unavailable | + + + Support + + +---------+ + | Name | Relationship | Address | Phone | + + +---------+ + | Contact,No | ECON | Unknown | | + + +---------+ + Care Team Providers + +------+ + | Care Tire Installer Name | Role | Phone | + [...] +------+-------+ + | MEDICARE | MEDICA | [id number] | | | [address] | | | RE | | | | [place] [address] | | | IP-OP | | | | | + +--------+ +------+-------+ + | MEDICAID | OBED | [id number] | | | [address] | | | N | | | | [place] | | | [place] | | | | [address] | | | ONLINE ADVERTISING MANAGER | | | | | + +--------+ [...] [place] | | | [address] | [place] [address] | + +--------+ +--------+ + +
--- OUTSIDE RECORDS SUMMARY | ~2018-08-11 | XMS | Encounter Summary ---
Demographics + + + | Address | [address] | | | [place] [address] | + + + | Home Phone | | + + + | Preferred Language | Unknown | + + + | Marital Status | Single | + + + | Christianity Affiliation | Unknown | + + + | Race | Unknown | + + + | Ethnic Group | Unknown | + + + Author + + + | Author | [facility] | + + + | Organization | [facility] [facility] | + + + | Address | Unknown | + + + | Phone | Unavailable | + + + Support + + +---------+ + | Name | Relationship | Address | Phone | + + +---------+ + | Contact,No | ECON | Unknown | | + + +---------+ + Care Team Providers + +------+ + | Care Collating Machine Operator Name | Role | Phone [...] | | 2018 | on Only | [facility] | | XR MR) | | | | [address] | | | | | | [place] | | | | | | [address] | | | | | | [phone] | | | +--------+ + + + [...]
--- OUTSIDE RECORDS SUMMARY | ~2018-08-11 | XMS | Encounter Summary ---
Demographics + + + | Address | [address] | | | [place] [address] | + + + | Home Phone | | + + + | Preferred Language | Unknown | + + + | Marital Status | | + + + | Episcopalian Affiliation | Unknown | + + + | Race | Unknown | + + + | Ethnic Group | Unknown | + + + Author + + + | Author | [facility] | | | and [place] | + + + | Organization | [facility] | | [...] Team Providers + +------+ + | Care Fisheries Management Biologist Name | Role | Phone | + [...] [address] | | | | | [place], | [place] | | | | | [place] [address] | [address] | | | | | [phone] | | | +--------+ + + + [...]
--- OUTSIDE RECORDS SUMMARY | ~2018-08-11 | XMS | Encounter Summary ---
Demographics + + + | Address | [address] | | | [place] [address] | + + + | Home Phone | | + + + | Preferred Language | Unknown | + + + | Marital Status | | + + + | Uatsdin Affiliation | Unknown | + + + | Race | Unknown | + + + | Ethnic Group | Unknown | + + + Author + + + | Author | [facility] | | | and [place] | + + + | Organization | [facility] | | | and [...] Team Providers + +------+ + | Care City Sanitarian Name | Role | Phone | + [...] [address] | | | | | [place], | [place] | | | | | [place] [address] | [address] | | | | | [phone] | | | +--------+ + + + [...]
--- OUTSIDE RECORDS SUMMARY | ~2018-08-11 | XMS | Encounter Summary ---
Demographics + + + | Address | [address] | | | [place] [address] | + + + | Home Phone | | + + + | Preferred Language | Unknown | + + + | Marital Status | Single | + + + | Scientology Affiliation | Unknown | + + + | Race | Unknown | + + + | Ethnic Group | Unknown | + + + Author + + + | Author | [facility] | + + + | Organization | [facility] | + + + | Address | Unknown | + + + | Phone | Unavailable | + + + Support + + +---------+ + | Name | Relationship | Address | Phone | + + +---------+ + | Contact,No | ECON | Unknown | | + + +---------+ + Care Team Providers + +------+ + | Care Leather Etcher Name | Role | Phone | + [...] midline low | | 2019 | | [facility] | DO [address] | back pain without | | | | [address] | [place] | sciatica; | | | | [place] | [address] | Degeneration of | | | | [address] | | intervertebral disc | | | | [phone] | | of lumbar region | +--------+ [...]
[~2018-08-11 12:47] MED LIST changes: +FUROSEMIDE20 MG PO; +LISINOPRIL10 MG PO; +POTASSIUM CHLO10 ME2 PO; +SULFAMETHOXAZO1 EAC1 PO
--- OUTSIDE RECORDS SUMMARY | 2018-08-11 12:50 | XMS ---
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 Care History Medical/Surgical 03/26/2018 [facility] - Patient is currently established with [facility]. If patient is seen in the ED during business hours. Please contact CHWs at [facility]. Care Recommendation: This patient has had 5 or more Emergency Department visits in the last 12 months.\T\nbsp; Patient requires education on the scope and purpose of the ED as an acute care provider not a Primary Care Provider and should not be utilized for chronic conditions.\T\nbsp;These are guidelines and the provider should exercise clinical judgment when providing care 12/09/2017 [facility] HX:\T\nbsp; HTN, DM2, NEUROPATHY, DIABETIC RETINOPATHY AND MACULAR EDEMA, CHRONIC STASIS DEMATITIS, DJD, CARPAL TUNNEL SYNDROME BILAT, TINNITUS, LYMPH EDEMA, OBESITY,\T\nbsp; OSTEOARTHRITIS E.D. VISIT COUNT (12 MO.) 4 [facility]. TOTAL 4 NOTE: Visits indicate total known visits. 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 [place] [place] TYPE: Emergency COMPLAINT: - INFECTED R LEG 11/19/2017 13:34 [facility] [address] [place] TYPE: Emergency COMPLAINT: - R LEG SORE DIAGNOSES: - Local infection of the skin and subcutaneous tissue, unspecified INPATIENT VISIT TRACKING (12 MO.) [facility] DIAGNOSES: - chest pain rule out [facility]08[facility]2017 [facility]: Medical [facility] COMPLAINT: - SEPSIS DIAGNOSES: - Cellulitis of right lower limb - Low back pain - Essential (primary) hypertension - Polyneuropathy, unspecified - Gastro-esophageal reflux disease without esophagitis - Streptococcal sepsis, unspecified - Foot drop, right foot - Sepsis, unspecified organism - Sepsis due to Methicillin susceptible Staphylococcus aureus - 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
[2018-08-11] MEDS ORDERED: FUROSEMIDE20 MG PO (13:00)
--- NOTE | 2018-08-11 19:54 | EKG ---
[facility] [address] [facility] [place], [place] [address] Signed Normal sinus rhythm Normal ECG When compared with ECG of 25-MAR-2018 13:04, No significant change was found Confirmed by DANIEL GLORIA MD ([id number]) on 08/11/2018 7:54:28 PM Electronically Signed By: DANIEL GLORIA MD 08/11/181953 PATIENT NAME: ROSENDO LANDAVERDE Electrocardiogram DATE OF : 44 PHYSICIAN: DANIEL GLORIA MD REPORT #: [id number] REPORT IS CONFIDENTIAL AND NOT TO BE RELEASED WITHOUT AUTHORIZATION
== END 2018-08-11 14:19 | disposition home or self-care (01) ==
LOC: ED 12:47
DX: R07.9 Chest pain, unspecified (principal); R06.00 Dyspnea, unspecified; I10 Essential (primary) hypertension; Z79.899 Other long term (current) drug therapy
CPT/HCPCS: 71045; 80053; 84484; 85025; 93005; 93010; 99285-25

== ENCOUNTER → 2021-06-25 | Emergency (ER) | payer MEDICARE, OTHER ==
[~2021-06-25] VITALS: Ht 177.8 cm; Wt 118.4 kg
[~2021-06-25] MED LIST changes: +BUPROPION XL150 MG PO; +CLOPIDOGREL75 MG PO; +FLOMAX0.4 MG PO; +LEVOFLOXACIN750 MG PO; +METFORMIN HCL500 M1 PO; +NITROGLYCERIN0.4 MG SL; +ROSUVASTATIN CAL5 MG PO; +TORSEMIDE20 MG PO
--- OUTSIDE RECORDS SUMMARY | 2021-06-25 14:08 | XMS ---
PreManage Notification: ROSENDO LANDAVERDE Security Legal Clerk Events No recent Security Events currently on file CRITERIA MET - Group Notification CARE PROVIDERS TRENT PEREZ Nurse Practitioner: Family 12/10/2017-Current PHONE: [facility] PHONE: [phone] Sofy has no Care Guidelines for this patient. Care History Medical/Surgical 03/26/2018 [facility] - Patient is currently established with [facility]. If patient is seen in the ED during business hours. Please contact CHWs at [facility]. Care Recommendation: This patient has had 5 or more Emergency Department visits in the last 12 months.\T\nbsp; Patient requires education on the scope and purpose of the ED as an acute care provider not a Primary Care Provider and should not be utilized for chronic conditions.\T\nbsp; These are guidelines and the provider should exercise clinical judgment when providing care 12/09/2017 [facility] HX:\T\nbsp; HTN, DM2, NEUROPATHY, DIABETIC RETINOPATHY AND MACULAR EDEMA, CHRONIC STASIS DEMATITIS, DJD, CARPAL TUNNEL SYNDROME BILAT, TINNITUS, LYMPH EDEMA, OBESITY,\T\nbsp; OSTEOARTHRITIS E.D. VISIT COUNT (12 MO.) 1 [facility] [place] TOTAL 1 NOTE: Visits indicate total known visits. ED/UCC VISIT TRACKING (12 MO.) 06/25/2021 14:06 [facility] [place] TYPE: Emergency COMPLAINT: - LOWER GI BLEEDING INPATIENT VISIT TRACKING (12 MO.) No inpatient visits to display in this time frame [email or web address]
== END ==
LOC: ED 14:05
DX: K56.41 Fecal impaction (principal); I10 Essential (primary) hypertension; Z87.891 Personal history of nicotine dependence; Z79.899 Other long term (current) drug therapy; Z79.84 Long term (current) 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
CPT/HCPCS: 99283

== ENCOUNTER 2021-06-27 08:56 | Emergency (ER) | payer MEDICARE, OTHER ==
[~2021-06-27] VITALS: Ht 177.8 cm; Wt 118.4 kg
[~2021-06-27 08:56] MED LIST changes: -FLOMAX0.4 MG PO; -LEVOFLOXACIN750 MG PO; -NITROGLYCERIN0.4 MG SL
--- OUTSIDE RECORDS SUMMARY | 2021-06-27 08:58 | XMS ---
PreManage Notification: ROSENDO LANDAVERDE Security Control Clerk Auditing Events No recent Security Events currently on file CRITERIA MET - Group Notification - [facility] - 2 Visits in 30 Days CARE PROVIDERS TRENT PEREZ Nurse Practitioner: Family 12/10/2017-Current PHONE: Unknown [facility] Current PHONE: [phone] Sofy has no Care Guidelines for this patient. Care History Medical/Surgical 03/26/2018 [facility] - Patient is currently established with [facility]. If patient is seen in the ED during business hours. Please contact CHWs at [facility]. Care Recommendation: This patient has had 5 or more Emergency Department visits in the last 12 months.\T\nbsp; Patient requires education on the scope and purpose of the ED as an acute care provider not a Primary Care Provider and should not be utilized for chronic conditions.\T\nbsp; These are guidelines and the provider should exercise clinical judgment when providing care 12/09/2017 [facility] HX:\T\nbsp; HTN, DM2, NEUROPATHY, DIABETIC RETINOPATHY AND MACULAR EDEMA, CHRONIC STASIS DEMATITIS, DJD, CARPAL TUNNEL SYNDROME BILAT, TINNITUS, LYMPH EDEMA, OBESITY,\T\nbsp; OSTEOARTHRITIS E.D. VISIT COUNT (12 MO.) 2 [facility] [place] TOTAL 2 NOTE: Visits indicate total known visits. ED/UCC VISIT TRACKING (12 MO.) 06/27/2021 08:56 [facility] [place] TYPE: Emergency COMPLAINT: - ABDOMINAL PAIN 06/25/2021 14:06 [facility] [place] TYPE: Emergency COMPLAINT: - LOWER GI BLEEDING INPATIENT VISIT TRACKING (12 MO.) No inpatient visits to display in this time frame [id number]
[2021-06-27] MEDS ORDERED: LEVOFLOXACIN750 MG PO (11:18)
[2021-06-27] MEDS ORDERED: FLOMAX0.4 MG PO (11:18)
[2021-06-27] MEDS ORDERED: NITROGLYCERIN0.4 MG SL (11:24)
--- NOTE | 2021-06-28 13:31 | EKG ---
[facility] [address] [facility] [address] [facility] [place] [address] Signed Atrial fibrillation Abnormal ECG When compared with ECG of 22-DEC-2018 09:47, Atrial fibrillation has replaced Sinus rhythm Inverted T waves have replaced nonspecific T wave abnormality in Inferior leads Confirmed by WESLEY EDDY DO ([id number]) on 06/28/2021 1:31:12 PM Electronically Signed By: WESLEY EDDY DO 06/28/21 1331 PATIENT NAME: AKHILROSENDO JUN Electrocardiogram DATE OF : 44 PHYSICIAN: WESLEY EDDY DO REPORT #: [id number] REPORT IS CONFIDENTIAL AND NOT TO BE RELEASED WITHOUT AUTHORIZATION
== END 2021-06-27 13:00 | disposition home or self-care (01) ==
LOC: ED 08:56
DX: N41.9 Inflammatory disease of prostate, unspecified (principal); R33.9 Retention of urine, unspecified; M19.90 Unspecified osteoarthritis, unspecified site; I10 Essential (primary) hypertension; Z87.891 Personal history of nicotine dependence; Z79.84 Long term (current) 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; Z79.899 Other long term (current) drug therapy
CPT/HCPCS: 51702; 51798; 74177; 80048; 81001; 83690; 84484; 85025; 93005; 93010; 99284-25; J1170; J1956; J7040; Q9967

== ENCOUNTER 2021-07-05 13:35 | Emergency (ER) | payer MEDICARE, OTHER ==
[~2021-07-05] VITALS: Ht 177.8 cm; Wt 113.4 kg
[~2021-07-05 13:35] MED LIST changes: +FLOMAX0.4 MG PO; +LEVOFLOXACIN750 MG PO; +NITROGLYCERIN0.4 MG SL
--- OUTSIDE RECORDS SUMMARY | 2021-07-05 13:38 | XMS ---
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 Current PHONE: [phone] Sofy has no Care Guidelines for this patient. Care History Medical/Surgical 03/26/2018 [facility] - Patient is currently established with [facility]. If patient is seen in the ED during business hours. Please contact CHWs at [facility]. Care Recommendation: This patient has had 5 or more Emergency Department visits in the last 12 months.\T\nbsp; Patient requires education on the scope and purpose of the ED as an acute care provider not a Primary Care Provider and should not be utilized for chronic conditions.\T\nbsp; These are guidelines and the provider should exercise clinical judgment when providing care 12/09/2017 [facility] HX:\T\nbsp; HTN, DM2, NEUROPATHY, DIABETIC RETINOPATHY AND MACULAR EDEMA, CHRONIC STASIS DEMATITIS, DJD, CARPAL TUNNEL SYNDROME BILAT, TINNITUS, LYMPH EDEMA, OBESITY,\T\nbsp; OSTEOARTHRITIS E.D. VISIT COUNT (12 MO.) 3 [place] [place] TOTAL 3 NOTE: Visits indicate total known visits. ED/UCC VISIT TRACKING (12 MO.) 07/05/2021 13:35 [facility] [place] TYPE: Emergency COMPLAINT: - CHEST PAIN 06/27/2021 08:56 [facility] [place] TYPE: Emergency COMPLAINT: - ABDOMINAL PAIN DIAGNOSES: - Inflammatory disease of prostate, unspecified - Essential (primary) hypertension - Personal history of nicotine dependence - Other retention of urine - Unspecified osteoarthritis, unspecified site - Lower abdominal pain, unspecified - care home (current) 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 - Other intermediate (current) drug therapy - Benign prostatic hyperplasia with lower urinary tract symptoms - Retention of urine, unspecified 06/25/2021 14:06 [facility] [place] TYPE: Emergency COMPLAINT: - LOWER GI BLEEDING DIAGNOSES: - Fecal impaction - Personal history of nicotine dependence - Hemorrhage of anus and rectum - Essential (primary) hypertension - Other intermediate (current) drug therapy - 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
[2021-07-05] MEDS ORDERED: ISOSORBIDE DINI10 MG PO (19:03)
--- NOTE | 2021-07-07 17:50 | EKG ---
[facility] [address] [facility] [place], [place] [address] Signed Atrial fibrillation Abnormal ECG When compared with ECG of 27-JUN-2021 09:02, No significant change was found Confirmed by JING ORDOÑEZ MD ([id number]) on 07/07/2021 5:50:29 PM Electronically Signed By: JING ORDOÑEZ MD 07/07/21 1750 PATIENT NAME: ROSENDO ALNDAVERDE JUN Electrocardiogram DATE OF : 44 PHYSICIAN: JING ORDOÑEZ MD REPORT #: [id number] REPORT IS CONFIDENTIAL AND NOT TO BE RELEASED WITHOUT AUTHORIZATION
== END 2021-07-05 19:40 | disposition home or self-care (01) ==
LOC: ED 13:35
DX: I25.118 Atherosclerotic heart disease of native coronary artery with other forms of angina pectoris (principal); I10 Essential (primary) hypertension; M19.90 Unspecified osteoarthritis, unspecified site; Z87.891 Personal history of nicotine dependence; Z79.899 Other long term (current) drug therapy; Z79.84 Long term (current) 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
CPT/HCPCS: 36415; 80048; 84484; 85025; 93005; 93010; 99285-25

== ENCOUNTER 2021-07-27 12:35 | Emergency (ER) | payer MEDICARE, OTHER ==
[~2021-07-27] VITALS: Ht 177.8 cm; Wt 113.4 kg
[~2021-07-27 12:35] MED LIST changes: +ISOSORBIDE DINI10 MG PO
--- OUTSIDE RECORDS SUMMARY | 2021-07-27 12:36 | XMS ---
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 Care History Medical/Surgical 12/09/2017 [facility] HX:\T\nbsp; HTN, DM2, NEUROPATHY, DIABETIC RETINOPATHY AND MACULAR EDEMA, CHRONIC STASIS DEMATITIS, DJD, CARPAL TUNNEL SYNDROME BILAT, TINNITUS, LYMPH EDEMA, OBESITY,\T\nbsp; OSTEOARTHRITIS E.D. VISIT COUNT (12 MO.) [address] [facility] TOTAL 4 NOTE: Visits indicate total known visits. ED/UCC VISIT TRACKING (12 MO.) 07/27/2021 12:35 [facility] [place] TYPE: Emergency COMPLAINT: - CHEST PAIN 07/05/2021 13:35 [facility] [place] TYPE: Emergency COMPLAINT: - CHEST PAIN DIAGNOSES: - Atherosclerotic heart disease of [place] coronary artery with other forms of angina pectoris - Other usp (current) drug therapy - Essential (primary) hypertension - Chest pain, unspecified - Unspecified osteoarthritis, unspecified site - senior living (current) 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 - Personal history of nicotine dependence 06/27/2021 08:56 [facility] [place] TYPE: Emergency COMPLAINT: - ABDOMINAL PAIN DIAGNOSES: - Inflammatory disease of prostate, unspecified - Essential (primary) hypertension - Personal history of nicotine dependence - Other retention of urine - Unspecified osteoarthritis, unspecified site - Lower abdominal pain, unspecified - 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 - Other 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 (current) drug therapy - Benign prostatic hyperplasia with lower urinary tract symptoms - Retention of urine, unspecified 06/25/2021 14:06 [facility] [place] TYPE: Emergency COMPLAINT: - LOWER GI BLEEDING DIAGNOSES: - Fecal impaction - Personal history of nicotine dependence - Hemorrhage of anus and rectum - Essential (primary) hypertension - Other usp (current) drug therapy - senior living (current) 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 INPATIENT VISIT TRACKING (12 MO.) No inpatient visits to display in this time frame [id number]
--- NOTE | 2021-07-27 17:43 | EKG ---
[facility] [address] [facility] [place], [place] [address] Signed Atrial fibrillation Abnormal ECG When compared with ECG of 05-JUL-2021 13:37, T wave inversion no longer evident in Inferior leads Confirmed by WESLEY EDDY DO ([id number]) on 07/27/2021 5:42:49 PM Electronically Signed By: WESLEY EDDY DO 07/27/21 1743 PATIENT NAME: ROSENDO LANDAVERDE Electrocardiogram DATE OF : 44 PHYSICIAN: WESLEY EDDY DO REPORT #: [id number] REPORT IS CONFIDENTIAL AND NOT TO BE RELEASED WITHOUT AUTHORIZATION
== END 2021-07-27 16:21 | disposition home or self-care (01) ==
LOC: ED 12:35
DX: R07.9 Chest pain, unspecified (principal); M19.90 Unspecified osteoarthritis, unspecified site; I10 Essential (primary) hypertension; Z87.891 Personal history of nicotine dependence; Z79.899 Other long term (current) drug therapy; Z79.84 Long term (current) 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
CPT/HCPCS: 36415; 80048; 84484; 85025; 93005; 93010; 99285-25

== ENCOUNTER 2021-08-18 18:36 | Emergency (ER) | payer MEDICARE, OTHER ==
[~2021-08-18] VITALS: Ht 177.8 cm; Wt 113.4 kg
--- OUTSIDE RECORDS SUMMARY | 2021-08-18 18:38 | XMS ---
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 Care History Medical/Surgical 12/09/2017 [facility] HX:\T\nbsp; HTN, DM2, NEUROPATHY, DIABETIC RETINOPATHY AND MACULAR EDEMA, CHRONIC STASIS DEMATITIS, DJD, CARPAL TUNNEL SYNDROME BILAT, TINNITUS, LYMPH EDEMA, OBESITY,\T\nbsp; OSTEOARTHRITIS E.D. VISIT COUNT (12 MO.) [address] [facility] TOTAL 5 NOTE: Visits indicate total known visits. 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) drug therapy - Essential (primary) hypertension 07/05/2021 13:35 [facility] [place] TYPE: Emergency COMPLAINT: - CHEST PAIN DIAGNOSES: - Atherosclerotic heart disease of [place] coronary artery with other forms of angina pectoris - Other intermediate school teacher (current) drug therapy - Essential (primary) hypertension - Chest pain, unspecified - Unspecified osteoarthritis, unspecified site - residential (current) 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 - Personal history of nicotine dependence 06/27/2021 08:56 [facility] [place] TYPE: Emergency COMPLAINT: - ABDOMINAL PAIN DIAGNOSES: - Inflammatory disease of prostate, unspecified - Essential (primary) hypertension - Personal history of nicotine dependence - Other retention of urine - Unspecified osteoarthritis, unspecified site - Lower abdominal pain, unspecified - 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 - Other senior care (current) drug therapy - Benign prostatic hyperplasia with lower urinary tract symptoms - Retention of urine, unspecified 06/25/2021 14:06 [facility] [place] TYPE: Emergency COMPLAINT: - LOWER GI BLEEDING DIAGNOSES: - Fecal impaction - Personal history of nicotine dependence - Hemorrhage of anus and rectum - Essential (primary) hypertension - Other senior care (current) drug therapy - 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
[2021-08-18] MEDS ORDERED: PANTOPRAZOLE SO40 MG PO (18:51)
[2021-08-18] MEDS ORDERED: MACROBID 100 M100 MG PO (22:33)
--- NOTE | 2021-08-18 23:56 | EKG ---
[facility] [address] [facility] [place] [address] Signed Atrial fibrillation with rapid ventricular response Abnormal ECG When compared with ECG of 27-JUL-2021 12:36, Vent. rate has increased BY 42 BPM Nonspecific T wave abnormality now evident in Inferior leads Confirmed by JING ORDOÑEZ MD ([id number]) on 08/18/2021 11:55:52 PM Electronically Signed By: JING ORDOÑEZ MD 08/18/21 2356 PATIENT NAME: ROSENDO LANDAVERDE Electrocardiogram DATE OF : 44 PHYSICIAN: JING ORDOÑEZ MD REPORT #: [id number] REPORT IS CONFIDENTIAL AND NOT TO BE RELEASED WITHOUT AUTHORIZATION
== END 2021-08-18 23:02 | disposition home or self-care (01) ==
LOC: ED 18:36
DX: N39.0 Urinary tract infection, site not specified (principal); M19.90 Unspecified osteoarthritis, unspecified site; I10 Essential (primary) hypertension; I48.91 Unspecified atrial fibrillation; Z87.891 Personal history of nicotine dependence; Z79.899 Other long term (current) drug therapy; Z79.84 Long term (current) 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
CPT/HCPCS: 36415; 51702; 74177; 80048; 81001; 85025; 93005; 93010; 99284-25; Q9967

== ENCOUNTER 2021-09-15 10:12 | Inpatient (IN) | payer MEDICARE, OTHER ==
[~2021-09-15] VITALS: Ht 177.8 cm; Wt 115.8 kg
[~2021-09-15 10:12] MED LIST changes: +MACROBID 100 M100 MG PO; +PANTOPRAZOLE SO40 MG PO
--- OUTSIDE RECORDS SUMMARY | 2021-09-15 10:14 | XMS ---
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 Care History Medical/Surgical 12/09/[address] [facility] HX:\T\nbsp; HTN, DM2, NEUROPATHY, DIABETIC RETINOPATHY AND MACULAR EDEMA, CHRONIC STASIS DEMATITIS, DJD, CARPAL TUNNEL SYNDROME BILAT, TINNITUS, LYMPH EDEMA, OBESITY,\T\nbsp; OSTEOARTHRITIS E.D. VISIT COUNT (12 MO.) [address] [facility] TOTAL 6 NOTE: Visits indicate total known visits. ED/UCC VISIT TRACKING (12 MO.) 09/15/2021 10:12 [facility] [place] TYPE: Emergency COMPLAINT: - SHOB 08/18/2021 18:36 [facility] [place] TYPE: Emergency COMPLAINT: - FLANK PAIN DIAGNOSES: - Other usp (current) drug therapy - Unspecified abdominal pain - Essential (primary) hypertension - assisted (current) 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 - Unspecified osteoarthritis, unspecified site - Unspecified atrial fibrillation - Personal history of nicotine dependence - Urinary tract infection, site not specified 07/27/2021 12:35 [facility] [place] TYPE: Emergency COMPLAINT: - CHEST PAIN DIAGNOSES: - Chest pain, unspecified - Unspecified osteoarthritis, unspecified site - Personal history of nicotine dependence - 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 - Other long term care administrator (current) drug therapy - Essential (primary) hypertension 07/05/2021 13:35 [facility] [place] TYPE: Emergency COMPLAINT: - CHEST PAIN DIAGNOSES: - Atherosclerotic heart disease of [place] coronary artery with other forms of angina pectoris - Other usp (current) drug therapy - Essential (primary) hypertension - Chest pain, unspecified - Unspecified osteoarthritis, unspecified site - assisted (current) 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 - Personal history of nicotine dependence 06/27/2021 08:56 [facility] [place] TYPE: Emergency COMPLAINT: - ABDOMINAL PAIN DIAGNOSES: - Inflammatory disease of prostate, unspecified - Essential (primary) hypertension - Personal history of nicotine dependence - Other retention of urine - Unspecified osteoarthritis, unspecified site - Lower abdominal pain, unspecified - 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 - Other long term care administrator (current) drug therapy - Benign prostatic hyperplasia with lower urinary tract symptoms - Retention of urine, unspecified 06/25/2021 14:06 [facility] [place] TYPE: Emergency COMPLAINT: - LOWER GI BLEEDING DIAGNOSES: - Fecal impaction - Personal history of nicotine dependence - Hemorrhage of anus and rectum - Essential (primary) hypertension - Other long term care administrator (current) drug therapy - 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
[2021-09-15] MEDS ORDERED: ISOSORBIDE DINI20 MG PO (13:42)
[2021-09-15] MEDS ORDERED: NEURONTIN400 MG PO (14:11)
[2021-09-15] MEDS ORDERED: FLOMAX0.4 MG PO (14:13)
[2021-09-15] MEDS ORDERED: BASAGLAR K100 UNIT/1 SUB-Q (14:14)
[2021-09-15] MEDS ORDERED: METOPROLOL SUCC50 MG PO (14:15)
--- NOTE | 2021-09-15 18:43 | EKG ---
[facility] [address] [place] [address] Signed Atrial fibrillation Abnormal ECG When compared with ECG of 18-AUG-2021 18:47, Vent. rate has decreased BY 45 BPM Confirmed by DANIEL GLORIA MD ([id number]) on 09/15/2021 6:43:43 PM Electronically Signed By: DANIEL GLORIA MD 09/15/211842 PATIENT NAME: ROSENDO LANDAVERDE JUN Electrocardiogram DATE OF : 44 PHYSICIAN: DANIEL GLORIA MD REPORT #: [id number] REPORT IS CONFIDENTIAL AND NOT TO BE RELEASED WITHOUT AUTHORIZATION
== END 2021-09-17 14:40 | disposition home or self-care (01) | DRG 291 ==
LOC: ED 10:12 → MS 13:09
PROVIDERS: ADMIT Internal Medicine; ATTEND Internal Medicine
DX: I11.0 Hypertensive heart disease with heart failure (principal); I50.21 Acute systolic (congestive) heart failure; I48.20 Chronic atrial fibrillation, unspecified; Z20.822 Contact with and (suspected) exposure to COVID-19; E11.42 Type 2 diabetes mellitus with diabetic polyneuropathy; I27.20 Pulmonary hypertension, unspecified; Z87.891 Personal history of nicotine dependence; M19.90 Unspecified osteoarthritis, unspecified site; Z96.641 Presence of right artificial hip joint; Z96.611 Presence of right artificial shoulder joint; Z89.022 Acquired absence of left finger(s); Z79.899 Other long term (current) drug therapy; Z79.02 Long term (current) use of antithrombotics/antiplatelets; Z79.84 Long term (current) 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
CPT/HCPCS: 36415; 71045; 80048; 80053; 83735; 83880; 85025; 93005; 93010; 93306; 94760; 97110; 97162; 99285-25; A9270; C9803; J1650; J1815; J1940; U0003

== ENCOUNTER 2022-03-27 09:18 | Emergency (ER) | payer MEDICARE, OTHER ==
[~2022-03-27] VITALS: Ht 177.8 cm; Wt 115.7 kg
[~2022-03-27 09:18] MED LIST changes: +BASAGLAR K100 UNIT/1 SUB-Q; +ISOSORBIDE DINI20 MG PO; +METOPROLOL SUCC50 MG PO; +NEURONTIN400 MG PO
--- OUTSIDE RECORDS SUMMARY | 2022-03-27 09:22 | XMS ---
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 Care History Medical/Surgical 12/09/2017 [facility] HX:\T\nbsp; HTN, DM2, NEUROPATHY, DIABETIC RETINOPATHY AND MACULAR EDEMA, CHRONIC STASIS DEMATITIS, DJD, CARPAL TUNNEL SYNDROME BILAT, TINNITUS, LYMPH EDEMA, OBESITY,\T\nbsp; OSTEOARTHRITIS E.D. VISIT COUNT (12 MO.) [facility] TOTAL 8 NOTE: Visits indicate total known visits. ED/UCC VISIT TRACKING (12 MO.) 03/27/2022 09:[address] [facility] [address] Jin[facility]ie RODRIGUEZ TYPE: Emergency COMPLAINT: - SOB [facility] DIAGNOSES: - Chest Pressure - Disorder of kidney and ureter, unspecified - Type 2 diabetes mellitus with hyperosmolarity without nonketotic hyperglycemic-hyperosmolar coma ([facility]) - Unstable angina - Unspecified atrial fibrillation - Hyperkalemia 09/15/2021 10:12 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) drug therapy - Personal history of nicotine dependence - Unspecified osteoarthritis, unspecified site - Essential (primary) hypertension - Atherosclerotic heart disease of [place] coronary artery with other forms of angina pectoris - 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 (current) 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 06/27/2021 08:56 [facility] [place] TYPE: Emergency COMPLAINT: - ABDOMINAL PAIN DIAGNOSES: - Other retention of urine - Essential (primary) hypertension - Benign prostatic hyperplasia with lower urinary tract symptoms - 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 (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) 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 - Unspecified osteoarthritis, unspecified site - Personal history of nicotine dependence - Retention of urine, unspecified - Inflammatory disease of prostate, unspecified - Other residential (current) drug therapy - Lower abdominal pain, unspecified 06/25/2021 14:06 [facility] [place] TYPE: Emergency COMPLAINT: - LOWER GI BLEEDING DIAGNOSES: - Essential (primary) hypertension - Personal history of nicotine dependence - Other residential (current) drug therapy - Hemorrhage of anus and rectum - Fecal impaction - 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 (current) 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 INPATIENT VISIT TRACKING (12 MO.) 12/21/2021 21:32 [facility] Lexa IVAN TYPE: Intensive Care DIAGNOSES: - Unstable angina - Unspecified atrial fibrillation - Hyperglycemia, unspecified - Type 2 diabetes mellitus with hyperosmolarity without nonketotic hyperglycemic-hyperosmolar coma ([facility]) - Disorder of kidney and ureter, unspecified - Hyperkalemia - Cystitis, unspecified without hematuria 09/15/2021 13:09 [facility] [place] TYPE: Medical Surgical COMPLAINT: - ACUTE SYSTOLIC CONGESTIVE HEART FAILURE DIAGNOSES: - 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 (current) use of antithrombotics/antiplatelets - Other computer terminal operator (current) drug therapy - Type 2 diabetes mellitus with diabetic polyneuropathy - Hypertensive heart disease with heart failure - Presence of right artificial hip joint - Pulmonary hypertension, unspecified - Acquired absence of left finger(s) - Chronic atrial fibrillation, unspecified - Presence of right artificial shoulder joint - Acute systolic (congestive) heart failure - Contact with and (suspected) exposure to COVID-19 - Unspecified osteoarthritis, unspecified site - Personal history of nicotine dependence - 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 (current) 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 [id number]
--- NOTE | 2022-03-27 13:35 | NUR ---
1335-DRESSING CHANGE IN ER ROOM 6. SEE DAY SURGERY WOUND ASSESSMENT AND NOTE FOR DRESSING CHANGE DETAILS.
[2022-03-27] MEDS ORDERED: PANTOPRAZOLE SO40 MG PO (15:35)
--- NOTE | 2022-03-28 03:33 | EKG ---
[facility] [address] [facility] [place], [place] [address] Signed Atrial fibrillation Low voltage QRS Abnormal ECG When compared with ECG of 15-SEP-2021 10:40, No significant change was found Confirmed by DANIEL GLORIA MD ([id number]) on 03/28/2022 3:33:07 AM Electronically Signed By: DANIEL GLORIA MD 03/28/22 0333 PATIENT NAME: ROSENDO LANDAVERDE JUN Electrocardiogram DATE OF : 44 PHYSICIAN: DANIEL GLORIA MD REPORT #: [id number] REPORT IS CONFIDENTIAL AND NOT TO BE RELEASED WITHOUT AUTHORIZATION
== END 2022-03-27 18:22 | disposition home or self-care (01) ==
LOC: ED 09:18
DX: I11.0 Hypertensive heart disease with heart failure (principal); I50.9 Heart failure, unspecified; D64.9 Anemia, unspecified; I48.91 Unspecified atrial fibrillation; E11.9 Type 2 diabetes mellitus without complications; Z87.891 Personal history of nicotine dependence; Z79.4 Long term (current) use of insulin; Z79.84 Long term (current) 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; Z79.899 Other long term (current) drug therapy
CPT/HCPCS: 36415; 71045; 80053; 81001; 83735; 83880; 84484; 85025; 85060; 86850; 86900; 86901; 86922; 93005; 93010; 96374; 99285-25; J1940; P9016

== ENCOUNTER 2022-05-21 11:30 | Observation (INO) | payer MEDICARE, OTHER ==
[~2022-05-21] VITALS: Ht 177.8 cm; Wt 115.4 kg
--- OUTSIDE RECORDS SUMMARY | 2022-05-21 11:34 | XMS ---
PreManage Notification: ROSENDO LANDAVERDE Security Visual Educator Events No recent Security Events currently on file CRITERIA MET - [facility] TRENT PEREZ Nurse Practitioner: Family 12/10/2017-Current PHONE: Unknown [facility] PHONE: Unknown Sofy has no Care Guidelines for this patient. Care History Medical/Surgical 12/09/2017 [facility] HX:\T\nbsp; HTN, DM2, NEUROPATHY, DIABETIC RETINOPATHY AND MACULAR EDEMA, CHRONIC STASIS DEMATITIS, DJD, CARPAL TUNNEL SYNDROME BILAT, TINNITUS, LYMPH EDEMA, OBESITY,\T\nbsp; OSTEOARTHRITIS E.D. VISIT COUNT (12 MO.) 1 [facility] 8 MAXIMILIANO Salas AnnabelJackie TOTAL 9 NOTE: Visits indicate total known visits. ED/UCC VISIT TRACKING (12 MO.) 05/21/2022 11:31 [place] TYPE: Emergency COMPLAINT: - FALL 03/27/2022 09:18 [place] TYPE: Emergency COMPLAINT: - SOB DIAGNOSES: - Heart failure, unspecified - snf (current) 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 - Unspecified atrial fibrillation - Anemia, unspecified - Hypertensive heart disease with heart failure - Type 2 diabetes mellitus without complications - Shortness of breath - Other computer terminal operator (current) drug therapy - snf (current) use of insulin - Personal history of nicotine dependence [facility]21 [facility] DIAGNOSES: - Hyperkalemia - Chest Pressure - Disorder of kidney and ureter, unspecified - Type 2 diabetes mellitus with hyperosmolarity without nonketotic hyperglycemic-hyperosmolar coma ([facility]) - Unstable angina - Unspecified atrial fibrillation 09/15/2021 10:12 MAXIMILIANO [place] TYPE: Emergency COMPLAINT: - SHOB 08/18/2021 18:36 MAXIMILIANO [place] TYPE: Emergency COMPLAINT: - FLANK PAIN DIAGNOSES: - Unspecified atrial fibrillation - 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 - Unspecified abdominal pain - Personal history of nicotine dependence - Unspecified osteoarthritis, unspecified site - Essential (primary) hypertension - Other computer terminal operator (current) drug therapy - Urinary tract infection, site not specified 07/27/2021 12:35 MAXIMILIANO Friendmalachi JinJackie [place] TYPE: Emergency COMPLAINT: - CHEST PAIN DIAGNOSES: - Essential (primary) hypertension - snf (current) 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 - Unspecified osteoarthritis, unspecified site - Other computer terminal operator (current) drug therapy - Personal history of nicotine dependence - Chest pain, unspecified 07/05/2021 13:35 MAX[place] TYPE: Emergency COMPLAINT: - CHEST PAIN DIAGNOSES: - 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 - Chest pain, unspecified - Other computer terminal operator (current) drug therapy - Personal history of nicotine dependence - Unspecified osteoarthritis, unspecified site - Essential (primary) hypertension - Atherosclerotic heart disease of [place] coronary artery with other forms of angina pectoris 06/27/2021 08:56 MAXIMILIANO [place] TYPE: Emergency COMPLAINT: - ABDOMINAL PAIN DIAGNOSES: - Lower abdominal pain, unspecified - Other retention of urine - Essential (primary) hypertension - Benign prostatic hyperplasia with lower urinary tract symptoms - 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 - Unspecified osteoarthritis, unspecified site - Personal history of nicotine dependence - Retention of urine, unspecified - Inflammatory disease of prostate, unspecified - Other computer terminal operator (current) drug therapy 06/25/2021 14:06 MAX[place] TYPE: Emergency COMPLAINT: - LOWER GI BLEEDING DIAGNOSES: - 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
--- NOTE | 2022-05-21 18:09 | EKG ---
[facility] [address] [place] [address] Signed Atrial fibrillation Abnormal ECG When compared with ECG of 27-MAR-2022 09:19, No significant change was found Confirmed by Raquel Lopez MD () on 05/21/2022 6:08:51 PM Electronically Signed By: RAQUEL LOPEZ MD 05/21/22 1809 PATIENT NAME: ROSENDO LANDAVERDE Electrocardiogram DATE OF : 44 PHYSICIAN: RAQUEL LOPEZ MD REPORT #: [id number] REPORT IS CONFIDENTIAL AND NOT TO BE RELEASED WITHOUT AUTHORIZATION
[2022-05-22] MEDS ORDERED: ELIQUIS5 MG PO (10:18)
[2022-05-22] MEDS ORDERED: OXYCODONE-ACET1 EAC1 PO (10:18)
[2022-05-22] MEDS ORDERED: IRON325 M1 PO (10:19)
[2022-05-22] MEDS ORDERED: POTASSIUM CHLO20 ME1 PO (10:20)
[2022-05-22] MEDS ORDERED: TORSEMIDE100 MG PO (10:21)
[2022-05-22] MEDS ORDERED: ROSUVASTATIN CA20 MG PO (10:30)
[2022-05-22] MEDS ORDERED: ISOSORBIDE MON120 MG PO (10:32)
[2022-05-24] MEDS ORDERED: OSELTAMIVIR PHO75 MG PO (10:21)
[2022-05-24] MEDS ORDERED: CEFDINIR300 MG PO (10:22)
== END 2022-05-24 13:14 | disposition home or self-care (01) ==
LOC: ED 11:30 → MS 11:32
PROVIDERS: ADMIT Family Medicine; ATTEND Family Medicine
DX: J10.1 Influenza due to other identified influenza virus with other respiratory manifestations (principal); R53.1 Weakness; I48.91 Unspecified atrial fibrillation; E11.9 Type 2 diabetes mellitus without complications; S99.911A Unspecified injury of right ankle, initial encounter; X58.XXXA Exposure to other specified factors, initial encounter; Z20.822 Contact with and (suspected) exposure to COVID-19
CPT/HCPCS: 36415; 71045; 80053; 81001; 82553; 83605; 83735; 83880; 84100; 84484; 85025; 85060; 87040; 87070; 87502; 93005; 93010; 94640; 94761; 96365; 97110; 97162; 97165; 97535; 99285-25; A9270; G0378; J0456; J0696; J1815; J7030; J7040; J7060; U0003

== ENCOUNTER 2023-04-09 11:49 | Emergency (ER) | payer MEDICARE, OTHER ==
[~2023-04-09] VITALS: Ht 177.8 cm; Wt 100.7 kg
[~2023-04-09 11:49] MED LIST changes: +AZITHROMYCIN250 MG PO; +CEFDINIR300 MG PO; +CEFPODOXIME PR200 MG PO; +ELIQUIS5 MG PO; +IRON325 M1 PO; +ISOSORBIDE MON120 MG PO; +OSELTAMIVIR PHO75 MG PO; +OXYCODON-ACETA1 EAC2 PO; +OXYCODONE-ACET1 EAC1 PO; +POTASSIUM CHLO20 ME1 PO; +ROSUVASTATIN CA20 MG PO; +TORSEMIDE100 MG PO
--- OUTSIDE RECORDS SUMMARY | 2023-04-09 11:51 | XMS ---
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 - 2 Visits in 30 Days CARE PROVIDERS TRENT PEREZ Nurse Practitioner: Family 12/10/2017-Current PHONE: Unknown -Andrea DMD Dentist: Human Resources Benefits Administrator Current PHONE: [phone] [facility] Current PHONE: Unknown Sofy has no Care Guidelines for this patient. Care History Medical/Surgical 12/09/2017 [facility] HX:\T\nbsp; HTN, DM2, NEUROPATHY, DIABETIC RETINOPATHY AND MACULAR EDEMA, CHRONIC STASIS DEMATITIS, DJD, CARPAL TUNNEL SYNDROME BILAT, TINNITUS, LYMPH EDEMA, OBESITY,\T\nbsp; OSTEOARTHRITIS E.D. VISIT COUNT (12 MO.) 4 MAX[place]ILIANO [place] TOTAL 4 NOTE: Visits indicate total known visits. ED/UCC VISIT TRACKING (12 MO.) 04/09/2023 11:49 MAX[place]ILIANO [place] TYPE: Emergency COMPLAINT: - POSS SEIZURE 03/27/2023 07:29 MAX[place] TYPE: Emergency COMPLAINT: - GLF, R SHOULDER PAIN DIAGNOSES: - Contusion of right shoulder, initial encounter - Essential (primary) hypertension - Fall on same level from slipping, tripping and stumbling without subsequent striking against object, initial encounter - [facility] (current) use of anticoagulants - intermission coordinator (current) use of antithrombotics/antiplatelets - intermission coordinator (current) use of insulin - Other jail (current) drug therapy - Pain in right shoulder - Personal history of nicotine dependence - Type 2 diabetes mellitus without complications - Unspecified atrial fibrillation 09/15/2022 08:12 MAX[place] TYPE: Emergency COMPLAINT: - WEAKNESS 05/21/2022 11:31 MAX[place] TYPE: Emergency COMPLAINT: - FALL INPATIENT VISIT TRACKING (12 MO.) 09/15/2022 08:13 MAXIMIL[place] TYPE: Observation COMPLAINT: - PNEUMONIA DIAGNOSES: - Contact with and (suspected) exposure to COVID-19 - [facility] (current) use of anticoagulants - Other terminal system operator (current) drug therapy - Other pancytopenia - Pleural effusion, not elsewhere classified - Type 2 diabetes mellitus without complications - Unspecified atrial fibrillation 05/21/2022 11:32 MAXIM[place] TYPE: Observation COMPLAINT: - INFLUENZA A DIAGNOSES: - Contact with and (suspected) exposure to COVID-19 - Exposure to other specified factors, initial encounter - Influenza due to other identified influenza virus with other respiratory manifestations - Type 2 diabetes mellitus without complications - Unspecified atrial fibrillation - Unspecified injury of right ankle, initial encounter - Weakness [email or web address]
[2023-04-09 12:54] LABS: BILIRUBIN, URINE POSITIVE (negative); BLOOD/HGB, URINE NEGATIVE (Negative); KETONE, URINE SMALL (Negative); LEUK ESTERASE, URINE NEGATIVE (negative); NITRITE, URINE NEGATIVE (negative); PH, URINE 5.5 (5-7)
[2023-04-09 13:00] LABS: BASOPHILS 0.9 % (0-2); EOSINOPHILS 1.2 % (0-6); HEMATOCRIT 44.9 % (35.0-50.0); HEMOGLOBIN 14.8 g/dL (12.0-18.0); LYMPHOCYTES 30.3 % (24-44); MCH 30.6 (27-36); MCHC 32.9 g/dl (30-36); MCV 93.1 fl (81-99); MONOCYTES 10.8 % (0-12); NEUTROPHILS 56.8 % (39-80); PLATELET COUNT 174 K/uL (140-440); RBC 4.83 M/ul (4.3-5.7); RDW 16.4 (10.5-15.0)
[2023-04-09 13:03] LABS: BACTERIA, URINE RARE /hpf (negative); CASTS, URINE NONE SEEN \\lpf; COLLECTION TYPE, URINE CLEAN CATCH; CRYSTALS, URINE NONE SEEN (0-1+); EPITHELIAL CELLS, URINE SQUAMOUS 1+ /lpf (0-1+); RED BLOOD CELLS, URINE 0-1 /hpf (0-5); REFLEX CULTURE, URINE No (No); WHITE BLOOD CELLS, URINE 0-1 /HPF (0-5)
[2023-04-09 13:16] LABS: ALBUMIN/GLOBULIN RATIO 0.7 (1.1-2.4); ANION GAP 11.4 (7-21); BILIRUBIN, TOTAL 1.3 ng/dL (0.2-1.0); BUN/CREATININE RATIO 10.11 (6.0-28.6); CALCIUM 9.3 mg/dL (8.5-10.1); CREATININE, SERUM 0.89 mg/dL (0.70-1.30); POTASSIUM 3.4 mmol/L (3.5-5.1); PROTEIN, TOTAL 7.3 g/dL (6.4-8.2)
[2023-04-09 14:05] VITALS: BP 179/87
--- NOTE | 2023-04-11 06:00 | EKG ---
[facility] [address] [facility] [place] [address] Signed Atrial fibrillation Abnormal ECG When compared with ECG of 27-MAR-2023 08:15, Vent. rate has increased BY 34 BPM Confirmed by JUAN R STOKES MD ([id number]) on 04/11/2023 6:00:31 AM Electronically Signed By: JUAN R STOKES 04/11/23 0600 PATIENT NAME: ROSENDO LANDAVERDE Electrocardiogram DATE OF : 44 PHYSICIAN: JUAN R STOKES REPORT #: [id number] REPORT IS CONFIDENTIAL AND NOT TO BE RELEASED WITHOUT AUTHORIZATION
== END 2023-04-09 14:00 | disposition home or self-care (01) ==
LOC: ED 11:49
PROVIDERS: Emergency Medicine
DX: R41.0 Disorientation, unspecified (principal); M19.90 Unspecified osteoarthritis, unspecified site; I10 Essential (primary) hypertension; I48.91 Unspecified atrial fibrillation; E11.9 Type 2 diabetes mellitus without complications; Z79.899 Other long term (current) drug therapy; Z79.4 Long term (current) use of insulin
CPT/HCPCS: 36415; 70450; 80053; 81001; 85025; 93005; 93010; 99285-25

== ENCOUNTER 2023-04-20 07:06 | Emergency (ER) | payer MEDICARE, OTHER ==
[~2023-04-20] VITALS: Ht 177.8 cm; Wt 100.7 kg
--- OUTSIDE RECORDS SUMMARY | 2023-04-20 07:08 | XMS ---
PreManage Notification: ROSENDO LANDAVERDE Security Sap Business Objects Consultant Events No recent Security Events currently on file CRITERIA MET - Group Notification - PDMP - [facility] - 2 Visits in 30 Days CARE PROVIDERS TRENT PEREZ Nurse Practitioner: Family 12/10/2017-Current PHONE: Unknown -Andrea DMD Dentist: Liner Man Current PHONE: [phone] [facility] Current PHONE: Unknown Sofy has no Care Guidelines for this patient. Care History Medical/Surgical 12/09/2017 [facility] HX:\T\nbsp; HTN, DM2, NEUROPATHY, DIABETIC RETINOPATHY AND MACULAR EDEMA, CHRONIC STASIS DEMATITIS, DJD, CARPAL TUNNEL SYNDROME BILAT, TINNITUS, LYMPH EDEMA, OBESITY,\T\nbsp; OSTEOARTHRITIS E.D. VISIT COUNT (12 MO.) 5 MAXIMILIANO [place] TOTAL 5 NOTE: Visits indicate total known visits. ED/UCC VISIT TRACKING (12 MO.) 04/20/2023 07:07 MAXIMIL[place]O [place] TYPE: Emergency COMPLAINT: - WEAKNESS, R SHOULDER PAIN 04/09/2023 11:49 MAXIMILIANO [place] TYPE: Emergency COMPLAINT: - POSS SEIZURE DIAGNOSES: - Disorientation, unspecified - Essential (primary) hypertension - residential (current) use of insulin - Other intermission coordinator (current) drug therapy - Type 2 diabetes mellitus without complications - Unspecified atrial fibrillation - Unspecified osteoarthritis, unspecified site 03/27/2023 07:29 MAXIMILIANO [place] TYPE: Emergency COMPLAINT: - GLF, R SHOULDER PAIN DIAGNOSES: - Contusion of right shoulder, initial encounter - Essential (primary) hypertension - Fall on same level from slipping, tripping and stumbling without subsequent striking against object, initial encounter - rat exterminator (current) use of anticoagulants - rat exterminator (current) use of antithrombotics/antiplatelets - residential (current) use of insulin - Other intermission coordinator (current) drug therapy - Pain in right [...] with and (suspected) exposure to COVID-19 - residential (current) use of anticoagulants - Other custodial (current) drug therapy - Other pancytopenia - [...] of right ankle, initial encounter - Weakness [email or web address]
[2023-04-20 07:23] LABS: HEMATOCRIT 42.8 % (35.0-50.0); HEMOGLOBIN 14.1 g/dL (12.0-18.0); MCH 30.6 (27-36); MCHC 32.9 g/dl (30-36); MCV 93.1 fl (81-99); PLATELET COUNT 167 K/uL (140-440); RBC 4.59 M/ul (4.3-5.7); RDW 16.1 (10.5-15.0)
[2023-04-20 07:35] LABS: ALBUMIN 3.1 g/dL (3.4-5.0); ALBUMIN/GLOBULIN RATIO 0.76 (1.1-2.4); BILIRUBIN, TOTAL 1.4 ng/dL (0.2-1.0); BUN/CREATININE RATIO 9.17 (6.0-28.6); CALCIUM 8.8 mg/dL (8.5-10.1); CREATININE, SERUM 1.09 mg/dL (0.70-1.30); PROTEIN, TOTAL 7.2 g/dL (6.4-8.2)
[2023-04-20 07:42] LABS: BANDS, MANUAL DIFF 20; LYMPHOCYTES, MANUAL DIFF 16; MONOCYTES, MANUAL DIFF 1; NEUTROPHILS, MANUAL DIFF 63
[2023-04-20] MEDS ORDERED: AMOX TR-K CLV1 EAC1 PO (09:03)
[2023-04-20] MEDS ORDERED: ZITHROMAX250 MG PO (09:03)
[2023-04-20 09:22] VITALS: BP 155/79
== END 2023-04-20 09:22 | disposition home or self-care (01) ==
LOC: ED 07:06
PROVIDERS: Emergency Medicine
DX: R53.1 Weakness (principal); J18.9 Pneumonia, unspecified organism; D72.829 Elevated white blood cell count, unspecified; M91.11 Juvenile osteochondrosis of head of femur [Legg-Calve-Perthes], right leg; I10 Essential (primary) hypertension; E11.9 Type 2 diabetes mellitus without complications; Z91.81 History of falling; Z79.4 Long term (current) use of insulin; Z79.899 Other long term (current) drug therapy; Z79.02 Long term (current) use of antithrombotics/antiplatelets; Z79.01 Long term (current) use of anticoagulants; Z87.891 Personal history of nicotine dependence
CPT/HCPCS: 36415; 71045; 80053; 82553; 85025; 99285-25; J7040

== ENCOUNTER 2023-12-04 18:36 | Inpatient (IN) | payer MEDICARE, OTHER ==
[~2023-12-04] VITALS: Ht 177.8 cm; Wt 90.9 kg
[~2023-12-04 18:36] MED LIST changes: +AMOX TR-K CLV1 EAC1 PO; +HYDROCODON-ACE1 EA10 PO; +ZITHROMAX250 MG PO
[2023-12-04 18:58] LABS: HEMATOCRIT 49.3 % (35.0-50.0); HEMOGLOBIN 16.3 g/dL (12.0-18.0); MCH 31.9 (27-36); MCV 96.5 fl (81-99); PLATELET COUNT 242 K/uL (140-440); RBC 5.11 M/ul (4.3-5.7); RDW 15.9 (10.5-15.0)
[2023-12-04 19:14] LABS: BANDS, MANUAL DIFF 6; EOSINOPHILS, MANUAL DIFF 1; LYMPHOCYTES, MANUAL DIFF 31; MONOCYTES, MANUAL DIFF 4; NEUTROPHILS, MANUAL DIFF 58
[2023-12-04] MEDS ORDERED: FUROSEMIDE 100 MG/10 ML VIAL IV ONE (19:30)
[2023-12-04 19:42] LABS: HCO3, BLOOD GAS 26.2 mmol/L (22-26); O2 SATURATION, BLOOD GAS 98.1 % (95.0-100.0); PCO2, BLOOD GAS 42.7 mmHg (35-45); PO2, BLOOD GAS 94 mmHg (80-100); TOTAL CO2, BLOOD GAS 27.5
[2023-12-04 19:45] LABS: ALBUMIN 3.1 g/dL (3.4-5.0); ALBUMIN/GLOBULIN RATIO 0.62 (1.1-2.4); BILIRUBIN, TOTAL 0.9 ng/dL (0.2-1.0); BUN/CREATININE RATIO 13.46 (6.0-28.6); CREATININE, SERUM 1.04 mg/dL (0.70-1.30); PROTEIN, TOTAL 8.1 g/dL (6.4-8.2)
[2023-12-04 19:54] LABS: INFLUENZA B NAA NEGATIVE (NEGATIVE); RESPIRATORY SYNCYTIAL VIR NAA NEGATIVE (NEGATIVE)
--- NOTE | 2023-12-04 20:15 | NUR ---
PT ARRIVES TO CCU ROOM 129, ADMITTED FOR SOB/CHF. PT IS ALERT AND ORIENTED. HE HAD URGE TO VOID, SO ASSISTED TO BED AND THEN TO USE URINAL AT BEDSIDE. PT VERY WEAK, REQUIRED 2PA AND NOT ABLE TO STAND WELL. HE WAS ABLE TO VOID 125 DARK YELLOW URINE, THEN HELPED TO POSITION IN BED. PT ARRIVES ON 4L/NC WITH SPO2 95%. SLIGHTLY SHORT OF BREATH WITH ACTIVITY BUT RECOVERS FAIRLY QUICKLY. LUNGS HAVE FEW CRACKLES AND COARSE SOUNDS THROUGHOUT, MORE DIM ON RIGHT. PT ABLE TO ANSWER HIS ADMISSION QUESTIONS WITHOUT DIFFICULTY.
[2023-12-04 20:22] VITALS: BP 107/56
--- NOTE | 2023-12-04 20:34 | NUR ---
CALLED ED TALKED TO JUNIOR WORTHY IN REGARDS TO PATIENTS REPORTED BELONGINGS NOT WITH HIM ON ARRIVAL TO CCU.
[2023-12-04 21:00] VITALS: BP 116/75
--- NOTE | 2023-12-04 21:26 | NUR ---
PT HAS BEEN RESTING WITH EYES CLOSED, ON 4L/O2/NC WITH SPO2 96% AND RR 16. HR 80'S AFIB.
[2023-12-04 22:00] VITALS: BP 109/87
[2023-12-04 23:00] VITALS: BP 119/69
--- NOTE | 2023-12-04 23:00 | NUR ---
THE PATIENT HAS BEEN UP AND DOWN OVER THE LAST HOUR WITH FREQUENTS VOIDS, STANDING THEN SITTING USING URINAL, SITTING ON BEDSIDE COMMODE. PT WEAK AND IS BECOMING MORE TIRED AND SOON HE STARTS TO GET BACK TO BED HE HAS ANOTHER URGE TO VOID. EXTERNAL MALE CATHETER PLACED, PT TOLERATED WELL AND IS NOW ABLE TO REST, CATHETER FUNCTIONING WELL.
[2023-12-05] VITALS (13 sets, daily range): BP systolic 77–120; BP diastolic 43–83
--- NOTE | 2023-12-05 01:00 | NUR ---
PT HAS BEEN OCCASIONALLY MOANING IN HIS SLEEP, AWAKENS FOR ASSESSMENT. STATES HE DOES DREAM A LOT AND DOES NORMALLY MOAN AND CALL OUT IN HIS SLEEP. HAS NO COMPLAINTS AT THIS TIME, DENIES SOB, REMAINS ON 4L/NC, LUNGS CLEAR WITH FEW CREACKLES. NO REQUESTS AT THIS TIME.
--- NOTE | 2023-12-05 02:51 | NUR ---
PT YELLING OUT, IN TO CHECK ON HIM- HE ASKS "IS IT STILL OKAY TO PEE?". CATHETER IN PLACE. 1000 ML URINE EMPTIED FROM BAG. PT HAS NO C/O, WANTS TO GET BACK TO SLEEP. REMAINS ON 4L/NC 95%, RR 16.
--- NOTE | 2023-12-05 08:07 | NUR ---
REPORT RECEIVED FROM NIGHT RN - PT RESTING IN BED ALERT AND ORIENTED. 1L 02 REQUIRED TO MAINTAIN SP02 >92%. PT DENIES SOB. RR WNL. MALE EXTERNAL CATHETER IN PLACE AND DRAINING COLTON URINE. 3+ PITTING EDEMA IN BILATERAL LOWER LEGS. PT DENIES PAIN. BED IN CHAIR POSISTION TO EAT BREAKFAST. CALL LIGHT IN REACH.
--- NOTE | 2023-12-05 08:40 | NUR ---
PT ASSISTED UP TO CHAIR FOR COMFORT. USES FWW APPROPRIATLY, STEADY ON FEET, LINE AND TUBE MANAGMENT NEEDED. PT DENIES SOB WITH MOVEMENT. PREFERS OXYMASK VS NC. MALE PUREWIK PLACED, REDNESS IN LEFT GROIN AREA NOTED, PT REPORTS CHRONIC. AREA CLEANED AND DRIED. PT CONCERNED ABOUT CELL PHONE BEING IN ED, CONFIRMED WITH LEGAL COMPLIANCE OFFICER CELL PHONE WAS NOT PRESENT ON ARRIVAL WITH EMS.
[2023-12-05] MEDS ORDERED: FUROSEMIDE 40 MG/4 ML VIAL IV SCH (09:00)
[2023-12-05] MEDS ORDERED: ENOXAPARIN SODIUM 40 MG/0.4 ML SYR SUB-Q SCH (09:00)
[2023-12-05] MEDS ORDERED: HYDROCODONE/ACETA 5/325 TAB PO PRN (09:30)
--- NOTE | 2023-12-05 09:35 | NUR ---
VERBAL ORDER RECEIVED TO RESTART PT'S HOME PAIN MEDICATION - INITIALLY ENTERED WRONG MEDICATION, DC'D AND CORRECT DOSE/FREQUENCY ORDER PLACED.
[2023-12-05] MEDS ORDERED: OXYCODONE/APAP 7.5/325 TAB PO PRN ×2 (09:45→16:30)
--- NOTE | 2023-12-05 10:10 | NUR ---
RN IN ROOM TO ADMINISTER MEDICATIONS. PRN ADMINISTERED FOR CHRONIC PAIN. PT RESTING IN CHAIR WITH LEGS ELEVATED. DENIES SOB. VS WNL. CALL LIGHT IN REACH.
[2023-12-05] MEDS ORDERED: OXYCODON-ACETA1 EAC2 PO (10:11)
[2023-12-05] MEDS ORDERED: HYDROXYZINE HCL25 MG PO (10:16)
[2023-12-05] MEDS ORDERED: NEURONTIN400 MG PO (10:31)
--- NOTE | 2023-12-05 10:33 | NUR ---
MED REC COMPLETE
--- NOTE | 2023-12-05 11:44 | NUR ---
PT RESTING IN CHAIR WITH LEGS ELEVATED LOOKING OUT THE WINDOW. REMAINS ON 2L VIA OXYMASK, DENIES SOB. MALE PURWIK IN PLACE DRAINING COLTON URINE. PT DENIES NEEDS, CALL LIGHT IN REACH.
[2023-12-05] MEDS ORDERED: PHARMACY RENAL DOSE ADJUSTMENT 1 DOSE MISC PO SCH (12:00)
--- NOTE | 2023-12-05 12:35 | NUR ---
PT ASSISTED BACK TO BED FROM CHAIR UPON COMPLETION OF LUNCH. REMAINS STABLE ON FEET WITH FWW AND LINE/TUBE MANAGMENT. VS WNL. COLTON URINE IN SUCTION CANISTER, PUREWIK IN PLACE. PT DENIES PAIN ONCE LAYING DOWN IN BED AND "OFF TAILBONE", COCCYX VISUALIZED, NO BREAKDOWN NOTED. CALL LIGHT IN REACH.
--- NOTE | 2023-12-05 13:38 | EKG ---
[facility] [address] [facility] [place], [place] [address] Signed Atrial fibrillation Abnormal ECG When compared with ECG of 09-APR-2023 12:49, QT has shortened Confirmed by Vijaya Roberts MD ([id number]) on 12/05/2023 1:38:25 PM Electronically Signed By: VIJAYA ROBERTS 12/05/23 1338 PATIENT NAME: AKHILROSENDO JUN Electrocardiogram DATE OF : 44 PHYSICIAN: VIJAYA ROBERTS REPORT #: [id number] REPORT IS CONFIDENTIAL AND NOT TO BE RELEASED WITHOUT AUTHORIZATION
--- NOTE | 2023-12-05 14:20 | NUR ---
RN IN ROOM TO ADMINISTER MEDICATIONS, PT AWAKE RESTING IN BED, ALERT. IV SITE PATENT, FLUSHED. VS WNL.
--- NOTE | 2023-12-05 15:30 | NUR ---
RN IN ROOM ROUNDING WITH - PT UPDATED ON CURRENT PLAN OF CARE. ASSISTED TO CHAIR USING FWW. 02 TITRATED TO 0.5L IN ATTEMPT TO WEAN. VERBAL ORDERS RECEIVED FROM CONSTANTINO ENTERED.
[2023-12-05] MEDS ORDERED: DEXTROSE 50% 50 ML SYR IV PRN ×2 (16:00)
[2023-12-05] MEDS ORDERED: DEXTROSE 5% 1,000 ML IV PRN (16:00)
[2023-12-05] MEDS ORDERED: IBLOOD GLUCOSE TEST STRIP 1 EA TEST XX PRN (16:00)
[2023-12-05] MEDS ORDERED: GLUCAGON,HUMAN RECOMBINANT 1 MG/ML VIAL SUB-Q PRN (16:00)
[2023-12-05] MEDS ORDERED: METOPROLOL SUCCINATE 50 MG TABCR PO SCH (16:15)
[2023-12-05] MEDS ORDERED: buPROPion HCL XL 150 MG TAB.XL.24H PO SCH (16:30)
[2023-12-05] MEDS ORDERED: INSULIN LISPRO 100 UNIT/ML ML SUB-Q SCH (17:00)
[2023-12-05] MEDS ORDERED: IBLOOD GLUCOSE TEST STRIP 1 EA TEST VI SCH (17:00)
--- NOTE | 2023-12-05 17:00 | NUR ---
PATIENT MOVED FROM CCU TO ROOM 116. REPORT RECEIVED FROM ZAYNAB SEXTON. ORIENTED TO ROOM AND CALL LIGHT FUNCTIONS. PATIENT UP IN CHAIR. EXTERNAL MALE CATHETER DRAINING. VS CHARTED. CALL LIGHT IN REACH.
--- NOTE | 2023-12-05 17:13 | NUR ---
REPORT GIVEN TO MS RN - PT TRANSFERED TO ROOM 116. ALL QUESTIONS ANSWERED.
--- NOTE | 2023-12-05 19:15 | NUR ---
resting, no c/o pain, turns and repositioned self, O2 1L NC as his sats dropped to 86%.
--- NOTE | 2023-12-05 20:11 | NUR ---
pt awakens easily, irritable but cooperative, took meds w/o problems. requesting oxycodone that he takes at home in am and hs, will call md harry clarify. on 0.5l nc, cpox placed on at ths time sats 92%. lungs clear dim at bases, dry non productive cough present. abd soft. using male purewick in place, draining light tea colored urine. SL patent RAC. L first index finger missing. edema to LE 2+ pitting, erythema present, elevated slightly, cbg 175, received 1 untis SS Insulin. accucheck and meds given at this time his requests. turns and repositions self, Pt does not want FOB elavated, instructed, not very receptive. "You guys like to create drama, my legs are fine, they would be better if I were home, they do not need to be elevated."
--- NOTE | 2023-12-05 20:52 | NUR ---
CALL LIGHT ANSWERED, pt UP FROM BED TO CHAIR PER pt REQUEST. BLE ELEVATED IN CHAIR, SENIOR BIOSTATISTICIAN PLACING CHAIR ALARM ON FOR ADDITIONAL SAFETY, CALL LIGHT AND OTHER PERSONAL BELONGINGS IN REACH. pt IN GOOD SPIRITS AND BANTERING WITH STAFF, DENIES ADDITIONAL NEEDS OR CONCERNS. PRIMARY RN AWARE.
[2023-12-05] MEDS ORDERED: GABAPENTIN 400 MG CAP PO SCH (21:00)
[2023-12-05] MEDS ORDERED: APIXABAN 5 MG TAB PO SCH (21:00)
--- NOTE | 2023-12-05 23:36 | NUR ---
RESTING, EYES CLOSED, NO S/SX DISTRESS, TURNS AND REPOSITIONS SELF IN BED. CPOX ON AT BEDSIDE, O2 0.5L NC IN PLACE, TELE9 IN [address] AFIB/IRREGULAR RHYTHM,
[2023-12-06] VITALS (12 sets, daily range): BP systolic 97–119; BP diastolic 48–77
--- NOTE | 2023-12-06 01:12 | NUR ---
pt in chair, o2 0.5l nc in place, cpox at bedside sats 95%, will try to wean off. coop with assessments, back to bed from reclainer chair, toleratf fair, medicated with 1 percocet. edema to le improving. erythem same. sl patent
--- NOTE | 2023-12-06 01:39 | NUR ---
IN TO REPLACE PTs MALE PUREWICK, VS DONE, NO FURTHER NEEDS
[2023-12-06 05:22] LABS: BASOPHILS 0.5 % (0-2); EOSINOPHILS 1.7 % (0-6); HEMATOCRIT 37.3 % (35.0-50.0); HEMOGLOBIN 12.2 g/dL (12.0-18.0); LYMPHOCYTES 16.1 % (24-44); MCH 31.3 (27-36); MCHC 32.5 g/dl (30-36); MCV 96.3 fl (81-99); NEUTROPHILS 76.7 % (39-80); PLATELET COUNT 188 K/uL (140-440); RBC 3.88 M/ul (4.3-5.7); RDW 15.2 (10.5-15.0)
[2023-12-06 05:26] LABS: ANION GAP 9.7 (7-21); BUN/CREATININE RATIO 19.04 (6.0-28.6); CALCIUM 8.6 mg/dL (8.5-10.1); CREATININE, SERUM 1.05 mg/dL (0.70-1.30); POTASSIUM 3.7 mmol/L (3.5-5.1)
--- NOTE | 2023-12-06 06:08 | NUR ---
Awakens easily, Weaned off O2 at thist nel, sats 94-96% on 0.5L, 93% on room air, CPOX at bedside.. Declines to use sling R arm, no c/opain "I dont hurt unless I move" stated, slight edema to shoulder, moves arms slowly. weak LE, edema and erythema LE decreased. Male pure wick in place, drainings tea colored urine QS. Irritable mood at times, cooperative at others. Continues on fluid restriction.
--- NOTE | 2023-12-06 06:33 | NUR ---
desattd to 84% on room air, O2 back on 1L oxymask, sats 92%, denies SOB
--- NOTE | 2023-12-06 07:10 | NUR ---
REPORT RECEIVED FROM ZAYNAB PERDOMO. PATIENT RESTING IN BED WITH EYES CLOSED BUT WAKES TO SOUND OF CPOX. REMAINS ON TELE #9 A-FIB. CALL LIGHT IN REACH.
--- NOTE | 2023-12-06 08:00 | NUR ---
ARCHANAB FROM DR LEON TO REDUCE LASIX TO 20MG IV BID. ORDER RECEIVED TO HOLD LASIX IF PATIENT WAS HYPOTENSIVE. PATIENT UPDATED ON POC.
[2023-12-06] MEDS ORDERED: GABAPENTIN 400 MG CAP PO SCH (09:00)
--- NOTE | 2023-12-06 11:46 | NUR ---
PATIENT RESTING IN BED AFTER BEING UP IN THE CHAIR. DENIES PAIN, QUESTIONS OR CONCERNS. CALL LIGHT IN REACH.
--- NOTE | 2023-12-06 12:51 | NUR ---
PATIENT C/O 12/08 RIGHT SHOULDER PAIN. MEDICATED PER JUL. REQUESTED TO REST IN BED. EDUCATED PATIENT ON GETTING OOBTC AND CONTINUEING TO USE IS.
[2023-12-06] MEDS ORDERED: FUROSEMIDE 20 MG/2 ML VIAL IV SCH (13:00)
[2023-12-06] MEDS ORDERED: FUROSEMIDE 20 MG TAB PO SCH (13:00)
--- NOTE | 2023-12-06 15:10 | NUR ---
PATIENT RESTING BUT WAKES TO LATH TIER IN ROOM. REPORTS PAIN HAS MINIMALLY IMPROVED AFTER MEDICATION BUT DECLINED FURTHER INTERVENTION. REQUESTS TO CONTINUE TO REST, AGREEABLE TO GET UP TO CHAIR FOR SUPPER. CALL LIGHT IN REACH, BED LOW/LOCKED AND ALARM ON.
--- NOTE | 2023-12-06 15:15 | NUR ---
patient to shower with setup assistance only. Linen changed, ice water given. Patient has no other requests at this time. Call light within reach.
--- NOTE | 2023-12-06 16:34 | NUR ---
new male external catheder placed, pt up to chair 1 pa assist, 116ml of orange juice given. patient has no other requests at this time. chair alarm on, call light within reach.
--- NOTE | 2023-12-06 16:49 | NUR ---
PATIENT SITTING UP IN CHAIR ON 0.5L OF O2 VIA MASK, REFUSED NC. O2 SAT 91-92%. PATIENT DEMONSTRATED PROPER USE OF IS AND FLUTTER. ENCOURAGED CONTINUED USE. REPORTS PAIN HAS IMPROVED. AWAITING SUPPER. CALL LIGHT IN REACH. CHAIR ALARM ON.
--- NOTE | 2023-12-06 20:17 | NUR ---
PT SITTING UP IN CHAIR, LEGS DEPENDENT, ON ROOM AIR, CPOX ON AT BEDSIDE. SATS 90-92%, NO SOB NOTED, CPOX TURNED OFF AT THIS TIME, WILL DO SPOTS CHECKS. SL LAC, TELE IN PLACE, DENIES CP. LEGS DEPENDENT POSITION 1+ EDEMA, ERYTHEMA STILL PRESENT BUT IMPROVING. ON ROOM AIR, CLEAR LUNGS, DIM AT BASES. USING MALE PURE WICK AND USING ACAPELLA, PLEASANT AND COOPERATIVE. CALL LIGHT AND FRESH FLUIDS AT BEDSIDE, TOLERATING FLUID RESTRICTION. NO BM TODAY
--- NOTE | 2023-12-06 21:30 | NUR ---
SBA MINIMAL ASSIST PATIENT TO BED FROM CHAIR. 2 WARM BLANKET PROVIDED. PUREWICK IN PLACED. BED ALARM ON FOR SAFETY.
[2023-12-07] VITALS (10 sets, daily range): BP systolic 105–1327; BP diastolic 55–68
--- NOTE | 2023-12-07 01:00 | NUR ---
pt pulled iv sl L AC out. tip intact. "I did not know wht it was, I dont think I need it". readoning behing SL placement explained, will try to restart
--- NOTE | 2023-12-07 02:50 | NUR ---
Turns and repositions self in bed, on room air. no c/o pain. pure wick in place. IV SL was restarted earlier on R Wrist area by float RN. Tele#9 in plcae, afib rhythm, no c/o CP
--- NOTE | 2023-12-07 03:26 | NUR ---
used call light, c/o 02/08 back and r shoulder pain, medicated with 1 percocet awake, siiting up position in bed. tolerating fluid restriction, pure wick in place, draining tea colored urine. On room air, no c/o SOB, tele#[address], afib rhyth, denies CP
[2023-12-07 05:31] LABS: BASOPHILS 0.8 % (0-2); EOSINOPHILS 2.1 % (0-6); HEMATOCRIT 38.1 % (35.0-50.0); HEMOGLOBIN 12.5 g/dL (12.0-18.0); LYMPHOCYTES 20.6 % (24-44); MCH 31.2 (27-36); MCHC 32.8 g/dl (30-36); NEUTROPHILS 71.5 % (39-80); PLATELET COUNT 209 K/uL (140-440); RBC 4.01 M/ul (4.3-5.7); RDW 15.5 (10.5-15.0)
--- NOTE | 2023-12-07 05:39 | NUR ---
Pt awakens easily, no further c/o pain. Up to standing scale for daily weight 91.3KG, 2 steps back to recliner chair. legs elevated. pure wick in place, drining tea colored urine. cooperative. pleasant and cooperative, decereed edema of LE noted, denies R shoulder pain at this time. on room air, no sob noted with exertion.
[2023-12-07 05:55] LABS: ALBUMIN 2.3 g/dL (3.4-5.0); ALBUMIN/GLOBULIN RATIO 0.52 (1.1-2.4); ANION GAP 8.9 (7-21); BILIRUBIN, TOTAL 1.4 ng/dL (0.2-1.0); BUN/CREATININE RATIO 20.65 (6.0-28.6); CREATININE, SERUM 0.92 mg/dL (0.70-1.30); POTASSIUM 3.9 mmol/L (3.5-5.1); PROTEIN, TOTAL 6.7 g/dL (6.4-8.2)
--- NOTE | 2023-12-07 07:18 | NUR ---
REPORT RECEIVED FROM ZAYNAB PERDOMO. PATIENT SITTING UP IN CHAIR AWAKE AND REQUESTING ITEMS. CALL LIGHT IN REACH.
--- NOTE | 2023-12-07 09:30 | NUR ---
Spoke with Britni. He cont. to live at [facility]. He denies needs. Recently fractured his shoulder and is to be non weight bearing on his R shoulder. Pt states he can drive, but is no longer driving at this time. Pt would like a motorized scooter, but does not qualify for medicare to cover. I encouraged him to watch the newspaper or speak with [facility]. Pt denies needs for DME or help at home. He plans on dc to home when cleared medically. Pt denies needs and denies financial issues.
--- NOTE | 2023-12-07 11:21 | NUR ---
PATIENT RESTING IN BED WITH EYES CLOSED. WAKES TO ROUNDING. WARM BLANKET PROVIDED PER REQUEST. CALL LIGHT IN REACH.
--- NOTE | 2023-12-07 11:34 | NUR ---
PATIENT WAS SITTING UP IN HIS CHAIR THIS MORNING. PATIENT BRUSHED HIS TEETH AND WASHED HIS FACE AND SAID THANK YOU.
--- NOTE | 2023-12-07 11:37 | NUR ---
THIS MORNING AFTER DOING HIS VITALS. PATIENT WANTED TO GO BACK TO BED. HE SET ON THE SIDE OF HIS BED AND PT CAME IN TO WORK WITH HIM. TIED THE BACK OF HIS GOWN.
--- NOTE | 2023-12-07 12:49 | NUR ---
Spoke with Nelda from PT. She states pt will need HH PT/OT and is in agreement.
--- NOTE | 2023-12-07 13:40 | NUR ---
VISITED DURING SPIRITUAL CARE ROUNDS. PT APPEARED TO BE SLEEPING. DID NOT DISTURB. PROVIDED PRAYER.
--- NOTE | 2023-12-07 14:32 | NUR ---
UR CLNINCAL REVIEW: 2 MN FOR [facility]- MEETS CRITERIA FOR INPT STAY MEDICARE INPATIENT 12/05/23 @ 1231 ORDER MATCHES REG NO AUTH REQUIRED PER MEDICARE GUIDELINES DISCHARGE TO HOME WHEN STABLE
--- NOTE | 2023-12-07 17:59 | NUR ---
PATIENT RESTING IN BED. REPORTS PAIN PILL HELPED WITH HIS SHOULDER PAIN. EDUCATION RE-INFORCED ON FLUTTER VALVE AND INCENTIVE SPIRIMETER USE. DENIES NEEDS AT THIS TIME. BED LOW/LOCKED, EXIT ALARM ON AND CALL LIGHT IN REACH.
[2023-12-07] MEDS ORDERED: OXYCODONE/APAP 7.5/325 TAB PO PRN (18:30)
--- NOTE | 2023-12-07 20:36 | NUR ---
PT TRANSFERRED SELF FROM CHAIR TO BED. ON ROOM AIR, NO C/O SOB WITH EXERTION, LUNGS CLEAR BILAT, DENIES SOB, TELE#[address] AFIB iRREGULAR RHYTHM, NO CP. USING PUREWICK, DRAINING LIGHT TEA COLORED URINE. PLEASANT AND COOPERATIVE, CBG 142, DECLINED SS INSULIN. SL lw PATENT. DECREAED EDEMA TO FEET NOTED, ELEVATED, R FOOT DROP NO CHANGES. SCABBED DRYED AREAS OVER RARM AND BILAT FEET HEALING. DENEIS NEED FOR PAIN MEDS. TOLERATING FLUID RESTRICTION
[2023-12-08] VITALS (7 sets, daily range): BP systolic 103–146; BP diastolic 53–74
--- NOTE | 2023-12-08 00:10 | NUR ---
RESTING, EYES CLOSED, ON ROOM AIR, TURNS AND REPOSITIONS SELF IN BED PURE WICK IN PLACE. DRINING LIGHT TEA COLORED URINE. NO S/SX DISTRESS
--- NOTE | 2023-12-08 02:51 | NUR ---
resting, eyes closed, on room air. tele#[address], afib rhythm, pure wick in place, turns and repositions self in bed
--- NOTE | 2023-12-08 05:51 | NUR ---
On room air, clear lungs, tele#[address], afib, irregular rhythm, denies CP. abd large soft, no bm since admit. purewick in place, draining tea colored urine. dc'd at this time his requets, Urinal at hands reach. Edema to LE trace, erythema still present, R foot drop no changes. uses SBA/FWW, Daily standing weight was 90.1KG. SL R hand patent. R shoulder edema improving good CMS R hand. declines need for pain med.Pt tolerating fluid restriction. Up in chair, slight unsteadiness noted but did well. grabbing onto furniture, FWW at hands reach, did not use. SBA at times. Up in chair. no c/o CP, PAIN or SOB. Legs dependent position, encouraged to elevate. "I dont want the Lasix this , I m going home today and I do not want to have an accient on the way home". "I will elevated my legs later, I do elevate them when [facility] home ,not all the time but sometime, " Semireceptive to preventative meares. Continue to reinforce CHF precautions
--- NOTE | 2023-12-08 07:27 | NUR ---
BEDSIDE REPORT RECEIVED FROM ZAYNAB PERDOMO. PT IS AWAKE, SITS UP ON EDGE OF BED, WORKS WITH RT IN ROOM. NO REQUESTS AT THIS TIME.
--- NOTE | 2023-12-08 07:53 | NUR ---
WENT IN TO DO HIS BLOOD SUGAR CHECK PATIENT SITTING ON THE SIDE OF HIS BED. HANDED HIM A WARM WASH CLOTH AND HIS TOOTH BRUSH AND TOOTHPASTE AND MOUTH WASH. NOW PATIENT IS WAITING FOR HIS BREAKFAST.
--- NOTE | 2023-12-08 10:18 | NUR ---
ATTEMPTED TO VISIT DURING SPIRITUAL CARE ROUNDS. PT AMBULATING IN [place] WITH [facility]ER. BRIEF CONVERSATION DURING WALK. PROVIDED SUPPORTIVE PRESENCE, HOSPTIALITY, PRAYER.
[2023-12-08] MEDS ORDERED: FUROSEMIDE20 MG PO (10:20)
--- NOTE | 2023-12-08 10:20 | NUR ---
Spoke with Britni. He states Dr. Erazo has discussed dc with him. He denies needs to go home and is agreeable to HH from [facility] as he has used them in the past. Pt wanting to know if he can stay another day and I asked if he needs something or is concerned to go home. He denies, I spoke with PT and they felt another day would not hurt him, but it is not required. Infor passed on to Dr. Erazo and he plans on pt discharging today.
--- NOTE | 2023-12-08 10:22 | NUR ---
PATIENT AMBULATED IN HALLWAY FROM ROOM 116 TO PT ROOM AND BACK TO ROOM 116. PATIENT TOLERATED WELL. PATIENT NOW BACK TO BED, CALL LIGHT IN REACH. NO FURTHER NEEDS AT THIS TIME.
--- NOTE | 2023-12-08 12:20 | NUR ---
IV REMOVED, TIP INTACT, GAUZE AND COBAN DRESSING APPLIED TO SITE. PT DRESSES SELF WITH SHIRT. PANTS PROVIDED PT DID NOT HAVE ANY. VSS. DISCUSSED DISCHARGE INSTRUCTIONS WITH PT, PT VERBALIZES UNDERSTANDING. PT LEAVES MED-SURG VIA WHEELCHAIR ESCORTED BY CHANDRIKA MARY.
--- NOTE | 2023-12-08 12:58 | NUR ---
Chart faxed to [facility]. Face sheet, F2F, H&P, progress notes, PT/OT notes, Dc summary.
== END 2023-12-08 12:20 | disposition home or self-care (01) | DRG 291 ==
LOC: ED 18:36 → MS 19:57 → CCU 19:57 → MS 12-05 16:56
PROVIDERS: Emergency Medicine; ADMIT Internal Medicine; ATTEND Internal Medicine
PROC: 5A09357 Assistance with Respiratory Ventilation, Less than 24 Consecutive Hours, Continuous Positive Airway Pressure (ICD-10-PCS; principal; 2023-12-04)
DX: I11.0 Hypertensive heart disease with heart failure (principal); I50.33 Acute on chronic diastolic (congestive) heart failure; I25.10 Atherosclerotic heart disease of native coronary artery without angina pectoris; I48.91 Unspecified atrial fibrillation; E11.9 Type 2 diabetes mellitus without complications; J40 Bronchitis, not specified as acute or chronic; M19.90 Unspecified osteoarthritis, unspecified site; Z96.641 Presence of right artificial hip joint; Z96.611 Presence of right artificial shoulder joint; Z87.891 Personal history of nicotine dependence; Z89.022 Acquired absence of left finger(s); Z79.4 Long term (current) use of insulin; Z79.01 Long term (current) use of anticoagulants
CPT/HCPCS: 36415; 36600; 71045; 80048; 80053; 82803; 83735; 83880; 84484; 85025; 87502; 93005; 93010; 94660; 94667; 94668; 94760; 94762; 97162; 97165; 97530; 97535; J1650; J1815; J1940; U0002